=== PATIENT | female | born 1985 | race Caucasian/White ===

== ENCOUNTER 2016-12-09 22:54 | Emergency (ER) | payer MEDICAID ==
[2016-12-10] MEDS ORDERED: CEPHALEXIN 250 MG CAPSULE PO STA (01:05)
[2016-12-10] MEDS ORDERED: CEPHALEXIN 250 MG CAPSULE PO ONE (01:15)
== END 2016-12-10 01:15 | disposition home or self-care (01) ==
DX: J02.9 Acute pharyngitis, unspecified (principal); F17.200 Nicotine dependence, unspecified, uncomplicated
CPT/HCPCS: 81025; 99283; A9270

== ENCOUNTER 2017-03-12 22:47 | Emergency (ER) | payer MEDICAID ==
[2017-03-13] MEDS ORDERED: ONDANSETRON ODT 4 MG TABLET TL STA (00:02)
== END 2017-03-13 01:01 | disposition left against medical advice (07) ==
DX: R10.2 Pelvic and perineal pain (principal); O99.331 Smoking (tobacco) complicating pregnancy, first trimester; Z3A.12 12 weeks gestation of pregnancy; Z53.29 Procedure and treatment not carried out because of patient's decision for other reasons

== ENCOUNTER 2017-04-18 13:02 | Emergency (ER) | payer MEDICAID ==
--- NOTE | 2017-04-18 13:58 | ED Physician Documentation ---
History of Present Illness - Stated complaint Stated Complaint: HEADACHE/VOMITING - Chief complaint Chief Complaint: Heent - History obtained from History obtained from: Patient, Family - History of Present Illness Timing: How many days ago (3) Pain level max: 10 Pain level now: 10 Improved by: fioricet helped yesterday Worsened by: light, sound - Additonal information Additional information: 31 yo F with 3 day history of headache. Gradual onset. States burning to the top of her head. States uses IV heroin daily. States improved with fioricet. No fevers. No vomiting. States she is supposed to follow up about her , but has not followed up yet. Review of Systems Constitutional: denies: Fever, Chills Eyes: reports: Photophobia. denies: Decreased vision Ears: denies: Ear pain Nose: denies: Rhinorrhea / runny nose, Congestion Throat: denies: Sore throat Respiratory: denies: Cough GI: denies: Nausea, Vomiting, Diarrhea : reports: Now EGA (unsure) Skin: denies: Rash Musculoskeletal: denies: Neck pain, Back pain PD PAST MEDICAL HISTORY - Past Medical History Past Medical History: No Cardiovascular: None Endocrine/Autoimmune: None Musculoskeletal: Chronic back pain - Past Surgical History Past Surgical History: No - Present Medications Home Medications: Ambulatory Orders Medication Instructions Recorded Confirmed Aripiprazole [Abilify] 5 mg PO DAILY 11/05/16 03/12/17 Sertraline [Zoloft] 50 mg PO DAILY 11/05/16 03/12/17 - Allergies Allergies/Adverse Reactions: Allergies Allergy/AdvReac Type Severity Reaction Status Date / Time No Known Drug Allergies Allergy Verified 11/15/16 14:42 - Social History Does the pt smoke?: Yes Smoking Status: Current every day smoker Does the pt drink ETOH?: No Does the pt have substance abuse?: Yes - Immunizations Immunizations are current?: No Immunizations: Other immun not current - POLST Patient has POLST: No PD ED PE NORMAL - Vitals Vital signs reviewed: Yes - General General: Alert and oriented X 3, No acute distress, Well developed/nourished - HEENT HEENT: Atraumatic, PERRL, Moist mucous membranes, Other (+ photophobia) - Neck Neck: Supple, no meningeal sign, No bony TTP, No adenopathy - Cardiac Cardiac: RRR, No murmur - Respiratory Respiratory: No respiratory distress, Clear bilaterally - Abdomen Abdomen: Soft, Non tender, Non distended - Back Back: No spinal TTP - Derm Derm: Warm and dry - Extremities Extremities: No edema - Neuro Neuro: Alert and oriented X 3, parts processor 2-12 intact, No motor deficit, No sensory deficit, Normal speech - Psych Psych: Normal mood, Normal affect Results - Vitals Vitals: Vital Signs - 24 hr 04/18/17 04/18/17 13:04 14:25 Temperature 36.9 C Heart Rate 115 H 103 H Respiratory 28 H 16 Rate Blood Pressure 115/73 118/56 L O2 Saturation 97 97 Oxygen O2 Source Room air - Labs Labs: Laboratory Tests 04/18/17 04/18/17 14:00 14:06 Urine Color YELLOW Urine Clarity CLEAR Urine pH 5.5 Ur Specific [place] 1.015 Urine Protein TRACE Urine Glucose (UA) NEGATIVE Urine Ketones NEGATIVE Urine Occult Blood NEGATIVE Urine Nitrite NEGATIVE Urine Bilirubin NEGATIVE Urine Urobilinogen 0.2 (NORMAL) Ur Leukocyte Esterase NEGATIVE Ur Microscopic Review NOT INDICATED Urine Culture Comments NOT INDICATED Urine HCG, Qual NEGATIVE Urine Opiates Screen POSITIVE H Ur Oxycodone Screen NEGATIVE Urine Methadone Screen NEGATIVE Ur Propoxyphene Screen NEGATIVE Ur Barbiturates Screen POSITIVE H Ur Tricyclics Screen NEGATIVE Ur Phencyclidine Scrn NEGATIVE Ur Amphetamine Screen POSITIVE H U Methamphetamines Scrn POSITIVE H U Benzodiazepines Scrn NEGATIVE Urine Cocaine Screen NEGATIVE U Cannabinoids Screen NEGATIVE PD MEDICAL DECISION MAKING - ED course Complexity details: re-evaluated patient, considered differential, d/w patient, d/w family ED course: Patient is a 31-year-old female who has a history of polysubstance abuse, presents to the emergency department with a headache today. Unclear etiology. Headache resolved with Toradol, Phenergan, Benadryl. She is very well-appearing , nontoxic. Afebrile. No evidence of encephalitis. Photophobia resolved. Ambulating with a steady gait emergency department. test is negative. She has no evidence of meningitis, subarachnoid hemorrhage. Normal neurological exam. We will have her follow-up with her doctor for further evaluation and care. Patient counseled regarding signs and symptoms for which I believe and urgent re-evaluation would be necessary. Patient with good understanding of and agreement to plan and is comfortable going home at this time This document was made in part using voice recognition software. While efforts are made to proofread this document, sound alike and grammatical errors may occur. Departure - Departure Disposition: 01 Home, Self Care Clinical Impression: Methamphetamine abuse, Heroin abuse Headache Qualifiers: Headache type: unspecified Headache chronicity pattern: acute headache Intractability: not intractable Qualified Code(s): R51 - Headache Condition: Good Instructions: ED Headache Migraine Follow-Up: Mindy Scott ARNP [Primary Care Provider] - Within 1 week Comments: Return if you worsen. This should continue to improve over the next few hours. Discharge Date/Time: 04/18/17 15:05
[2017-04-18] MEDS ORDERED: KETOROLAC 30 MG/ML VIAL IM STA (14:15)
[2017-04-18] MEDS ORDERED: diphenhydrAMINE INJ 50 MG/ML VIAL IM STA (14:15)
[2017-04-18] MEDS ORDERED: PROMETHAZINE 25 MG/1 ML VIAL IM STA (14:15)
[2017-04-18 14:19] LABS: BILIRUBIN,URINE NEGATIVE (NEGATIVE); PH,URINE 5.5 PH (5.0-7.5)
[2017-04-18] MEDS ORDERED: PROMETHAZINE 25 MG/1 ML VIAL ONE (14:22)
[2017-04-18 14:23] LABS: HCG UR QUAL NEGATIVE; UA CHARGE (STRIP ONLY) YES; UR CULTURE IF IND NOT INDICATED
[2017-04-18] MEDS ORDERED: KETOROLAC 30 MG/ML VIAL ONE (14:23)
[2017-04-18] MEDS ORDERED: diphenhydrAMINE INJ 50 MG/ML VIAL ONE (14:23)
[2017-04-18 14:26] VITALS: BP 118/56
== END 2017-04-18 15:05 | disposition home or self-care (01) ==
LOC: ED 13:02
DX: R51 Headache (principal); F17.200 Nicotine dependence, unspecified, uncomplicated
CPT/HCPCS: 80306; 81001; 81003; 81025; 87086; 96372; 99283; 99284

== ENCOUNTER 2017-05-05 14:16 | Outpatient (CLI) | payer MEDICAID | END 2017-05-05 14:17 | disposition critical access hospital (66) | LOC: EMS 14:16 | PROVIDERS: ATTEND Surgery | DX: R10.9 Unspecified abdominal pain (principal) | CPT/HCPCS: A0425; A0429 ==

== ENCOUNTER 2017-05-05 14:34 | Emergency (ER) | payer MEDICAID ==
[2017-05-05 14:42] VITALS: BP 117/78
--- NOTE | 2017-05-05 15:17 | ED Physician Documentation ---
PD HPI ABD PAIN - Stated complaint Stated Complaint: ABD PX 15 WK PREG - Chief complaint Chief Complaint: Abd Pain PD PAST MEDICAL HISTORY - Past Medical History Cardiovascular: None Endocrine/Autoimmune: None Musculoskeletal: Chronic back pain - Past Surgical History Past Surgical History: No - Allergies Allergies/Adverse Reactions: Allergies Allergy/AdvReac Type Severity Reaction Status Date / Time No Known Drug Allergies Allergy Verified 05/05/17 14:41 - Social History Does the pt smoke?: Yes Smoking Status: Current every day smoker Does the pt drink ETOH?: No Does the pt have substance abuse?: Yes - Immunizations Immunizations are current?: No Immunizations: Other immun not current - POLST Patient has POLST: No Results - Vitals Vitals: Vital Signs - 24 hr 05/05/17 14:35 Temperature 37 C Heart Rate 95 Respiratory 16 Rate Blood Pressure 117/78 O2 Saturation 96 Oxygen O2 Source Room air
== END 2017-05-05 15:22 | disposition left against medical advice (07) ==
LOC: EDUNIT# → ED 14:34
DX: M54.9 Dorsalgia, unspecified (principal); Z53.21 Procedure and treatment not carried out due to patient leaving prior to being seen by health care provider; O99.332 Smoking (tobacco) complicating pregnancy, second trimester; Z3A.15 15 weeks gestation of pregnancy
CPT/HCPCS: 99281

== ENCOUNTER 2017-05-21 12:39 | Outpatient (CLI) | payer MEDICAID | END 2017-05-21 12:40 | disposition critical access hospital (66) | LOC: EMS 12:39 | PROVIDERS: ATTEND Surgery | DX: R10.9 Unspecified abdominal pain (principal) | CPT/HCPCS: A0425; A0429 ==

== ENCOUNTER 2017-05-21 13:07 | Emergency (ER) | payer MEDICAID ==
[2017-05-21 13:13] VITALS: BP 109/71
== END 2017-05-21 13:36 | disposition left against medical advice (07) ==
LOC: ED 13:07
DX: Z53.21 Procedure and treatment not carried out due to patient leaving prior to being seen by health care provider (principal)

== ENCOUNTER 2017-07-08 20:53 | Emergency (ER) | payer MEDICAID, OTHER ==
[2017-07-08 20:58] VITALS: BP 118/91
[2017-07-08] MEDS ORDERED: ACETAMINOPHEN 325 MG TABLET PO STA (21:24)
[2017-07-08] MEDS ORDERED: SULFAMETH/TRIMETH DS 800/160 MG TABLET PO STA (21:34)
[2017-07-08] MEDS ORDERED: ceFAZolin 1 GM VIAL IM STA (21:34)
[2017-07-08] MEDS ORDERED: ACETAMINOPHEN 325 MG TABLET PO ONE (21:36)
[2017-07-08] MEDS ORDERED: SULFAMETH/TRIMETH DS 800/160 MG TABLET PO ONE (21:43)
[2017-07-08] MEDS ORDERED: cefTRIAXone 1 GM VIAL ONE (21:43)
[2017-07-08] MEDS ORDERED: WATER FOR INJECTION,STERILE 10 ML ONE ×2 (21:44→22:22)
--- NOTE | 2017-07-08 22:12 | ED Physician Documentation ---
History of Present Illness - Stated complaint Stated Complaint: [facility] - Chief complaint Chief Complaint: Wound - Additonal information Additional information: Patient is a 31-year-old female with a history of injection heroin abuse and a history of cutaneous abscesses. The patient was picked up on a warrant tonight and during her last incarceration she was found to have abscesses so she is instructed by the retirement nurse to come into the emergency department to make sure that nothing required IV antibiotics were significant incision and drainage. The patient has multiple complaints now that she is here in police custody. She said she tried to address his complaints weeks ago when she came into the emergency department but she was not seen at that time because she left. She says she has an area in her right anterior medial thigh that she thinks is infected. She also complains of multiple cutaneous abscesses on her arms and in her mouth. Review of systems: For pertinent positive and negatives in the review of systems please see the history of present illness, otherwise all other systems have been reviewed and are negative. Dragon disclaimer: Parts of this medical record were created using voice recognition technology. Because of the inherent limitations of this system, occasional same sounding word substitutions do occur and persist despite proofreading. Please read the document for context. Review of Systems Constitutional: denies: Fever, Chills PD PAST MEDICAL HISTORY - Past Medical History Cardiovascular: None Endocrine/Autoimmune: None Musculoskeletal: Chronic back pain - Past Surgical History Past Surgical History: No - Present Medications Home Medications: Ambulatory Orders Medication Instructions Recorded Confirmed No Known Home Medications [No 05/21/17 05/21/17 Known Home Medications] - Allergies Allergies/Adverse Reactions: Allergies Allergy/AdvReac Type Severity Reaction Status Date / Time No Known Drug Allergies Allergy Verified 05/21/17 13:13 - Social History Does the pt smoke?: Yes Smoking Status: Current every day smoker Does the pt drink ETOH?: No Does the pt have substance abuse?: Yes - Immunizations Immunizations are current?: No Immunizations: Other immun not current - POLST Patient has POLST: No PD ED PE NORMAL - Vitals Vital signs reviewed: Yes - General General: Alert and oriented X 3, No acute distress, Well developed/nourished, Other - HEENT HEENT: Atraumatic, PERRL, Pharynx benign, Other (Dentition no obvious soft tissue swelling or abscesses seen) - Neck Neck: Supple, no meningeal sign, No bony TTP - Cardiac Cardiac: RRR, No murmur, No gallop - Respiratory Respiratory: No respiratory distress, Clear bilaterally - Abdomen Abdomen: Normal bowel sounds, Soft, Non tender, Non distended - Derm Derm: Normal color, Warm and dry, No rash - Extremities Extremities: No deformity, No tenderness to palpate, Normal ROM s pain, No edema , No calf tenderness / cord, Other - Neuro Neuro: Alert and oriented X 3 Results - Vitals Vitals: Vital Signs - 24 hr 07/08/17 20:55 Temperature 37.4 C Heart Rate 103 H Respiratory 18 Rate Blood Pressure 118/91 H O2 Saturation 100 Oxygen O2 Source Room air PD MEDICAL DECISION MAKING - ED course ED course: Patient is a 31-year-old heroin addict that was brought in [facility] for incarceration. She did have a history of cutaneous abscesses that needed medical attention during her last incarceration so they were directed to come to the emergency department for medical clearance. Here she has multiple complaints. On physical examination she is a well-appearing female does not look toxic or ill. She has a normal neurologic cardiac and pulmonary exam. In regards to the cutaneous abscesses there are a few hard nodules on her arms and none of which look infected. We tried to get access to the alleged problematic area in the right thigh are perineal area and the patient refused to have us look at these areas. We next attempted to have the nurse undressed the patient and look into it is problematic areas and again patient refused to have this look at them. I talked with the retirement nurse. At this point since she is refusing moreno parts of the physical examination otherwise looks fine we will release her to gel. Custody of the police. If she has anything that is encountered later once a thorough physical examination these areas can be performed that she might need to be sent back. We attempted to also give her antibiotics just empirically in case she has an infection since she is high risk for these and patient refused to take any antibiotics here. She was getting given Ancef and Bactrim. I called the retirement nurse and notified her of the new changes. Disposition discharged back to retirement Clinical impression: Medical screening examination Departure - Departure Disposition: 01 Home, Self Care Clinical Impression: Encounter for medical screening examination Condition: Good Instructions: ED Narcotic Abuse
[2017-07-08] MEDS ORDERED: ceFAZolin 1 GM VIAL ONE (22:22)
== END 2017-07-08 22:30 | disposition home or self-care (01) ==
LOC: ED 20:53
DX: Z02.89 Encounter for other administrative examinations (principal); Z87.898 Personal history of other specified conditions; F17.200 Nicotine dependence, unspecified, uncomplicated
CPT/HCPCS: 96372; 99283; A9270

== ENCOUNTER 2017-07-12 10:16 | Emergency (ER) | payer MEDICAID, OTHER ==
[2017-07-12] MEDS ORDERED: SODIUM CHLORIDE 0.9% 1,000 ML IV ONE (10:24)
[2017-07-12] MEDS ORDERED: SODIUM CHLORIDE FLUSH 0.9% 10 ML SYRINGE IVP ONE (10:52)
[2017-07-12] MEDS ORDERED: ONDANSETRON ODT 4 MG TABLET TL STA (11:21)
[2017-07-12] MEDS ORDERED: ONDANSETRON ODT 4 MG TABLET ONE (11:33)
[2017-07-12 12:23] LABS: BILIRUBIN,URINE NEGATIVE (NEGATIVE); UA w/ MICROSCOPIC CHARGE YES
[2017-07-12 12:24] LABS: UR CULTURE IF IND NOT INDICATED; WBC,URINE 0-3 /HPF (0-5)
--- NOTE | 2017-07-12 12:42 | ED Physician Documentation ---
PD HPI NVD - Stated complaint Stated Complaint: VOMITING,DIARRHEA - Chief complaint Chief Complaint: Abd Pain - History obtained from History obtained from: Patient, Police - History of Present Illness Pain level max: 4 Pain level now: 3 Associated symptoms: Abdominal pain (Epigastric, with vomiting). No: Fever, Chest pain, Hematemesis, Melena, Hematochezia, Dizzy Contributing factors: No: Bad food, Recent antibiotics, Anticoagulated, Diabetes Improved by: Vomiting Worsened by: Eating - Additonal information Additional information: Patient is a 31-year-old female who presents to the emergency department after vomiting for the past several days while in intermediate. She was using multiple substances prior to her incarceration. She states that she has epigastric pain when she vomits. Denies any other abdominal pain at this time. Denies any fevers. Also reportedly had diarrhea while incarcerated. She is here with police. She has a long history of IV drug use. Review of Systems Ten Systems: 10 systems reviewed and negative Constitutional: denies: Fever Nose: denies: Rhinorrhea / runny nose, Congestion Throat: denies: Sore throat : denies: Now EGA Skin: denies: Rash Musculoskeletal: denies: Neck pain, Back pain Neurologic: denies: Headache PD PAST MEDICAL HISTORY - Past Medical History Past Medical History: Yes Cardiovascular: None Endocrine/Autoimmune: None Musculoskeletal: Chronic back pain Other Past Medical History: IV drug abuser - Past Surgical History Past Surgical History: No - Present Medications Home Medications: Ambulatory Orders Medication Instructions Recorded Confirmed Dicyclomine [Bentyl] 10 mg PO TID 07/12/17 07/12/17 Lorazepam 1 mg PO TID 07/12/17 07/12/17 Promethazine Supp [Phenergan Supp] 25 mg [place] ONCE 07/12/17 07/12/17 Promethazine [Phenergan] 25 mg PO ONCE 07/12/17 07/12/17 cloNIDine [Catapres] 0.1 mg PO TID 07/12/17 07/12/17 - Allergies Allergies/Adverse Reactions: Allergies Allergy/AdvReac Type Severity Reaction Status Date / Time No Known Drug Allergies Allergy Verified 05/21/17 13:13 - Social History Does the pt smoke?: Yes Smoking Status: Current every day smoker Does the pt drink ETOH?: No Does the pt have substance abuse?: Yes Substance Use and Type: Meth, Heroin - Immunizations Immunizations are current?: No Immunizations: Other immun not current - POLST Patient has POLST: No PD ED PE NORMAL - Vitals Vital signs reviewed: Yes - General General: Alert and oriented X 3, No acute distress - HEENT HEENT: PERRL, Moist mucous membranes, Pharynx benign - Neck Neck: Supple, no meningeal sign - Cardiac Cardiac: RRR, Strong equal pulses - Respiratory Respiratory: No respiratory distress, Clear bilaterally - Abdomen Abdomen: Normal bowel sounds, Soft, Non tender, Non distended - Back Back: No spinal TTP - Derm Derm: Warm and dry, No rash - Extremities Extremities: No edema, No calf tenderness / cord - Neuro Neuro: Alert and oriented X 3 - Psych Psych: Normal mood, Normal affect Results - Vitals Vitals: Vital Signs - 24 hr 07/12/17 07/12/17 10:20 12:52 Temperature 36.5 C Heart Rate 89 57 L Respiratory 16 16 Rate Blood Pressure 108/68 108/65 O2 Saturation 94 100 Oxygen O2 Source Room air - Labs Labs: Laboratory Tests 07/12/17 11:55 Urine Color RED/BLOODY Urine Clarity BLOODY Urine pH 7.0 Ur Specific [place] 1.025 Urine Protein 100 H Urine Glucose (UA) NEGATIVE Urine Ketones NEGATIVE Urine Occult Blood LARGE H Urine Nitrite NEGATIVE Urine Bilirubin NEGATIVE Urine Urobilinogen 0.2 (NORMAL) Ur Leukocyte Esterase NEGATIVE Urine RBC TNTC H Urine WBC 0-3 Ur Squamous Epith Cells FEW Squamous Urine Bacteria Few Urine Yeast PRESENT Ur Microscopic Review INDICATED Urine Culture Comments NOT INDICATED PD MEDICAL DECISION MAKING - ED course Complexity details: reviewed results, re-evaluated patient, considered differential, d/w patient, d/w PMD (Mahnaz Marcial NP) ED course: Patient is a 31-year-old female who presents to the emergency department with vomiting and diarrhea for the past several days. Is tolerating p.o. without difficulty in the emergency department. Abdomen was soft, nontender nondistended. We attempted several times to obtain IV access, but she is a difficult stick secondary to her long history of IV drug abuse. She declined a blood draw as well. She states she feels better and would like to return to the intermediate at this time. She is well-appearing, nontoxic. Well-hydrated. As she is tolerating p.o. well, will continue supportive care at the intermediate. Patient counseled regarding signs and symptoms for which I believe and urgent re -evaluation would be necessary. Patient with good understanding of and agreement to plan and is comfortable going home at this time This document was made in part using voice recognition software. While efforts are made to proofread this document, sound alike and grammatical errors may occur. Departure - Departure Disposition: 01 Home, Self Care Clinical Impression: Vomiting Qualifiers: Vomiting type: unspecified Vomiting Intractability: non-intractable Nausea presence: without nausea Qualified Code(s): R11.11 - Vomiting without nausea Condition: Good Instructions: ED Nausea Vomiting Follow-Up: your,doctor in 3 days [Other] Comments: Return if you worsen. continue to drink fluids in the intermediate. Discharge Date/Time: 07/12/17 12:59
[2017-07-12 12:54] VITALS: BP 108/65
== END 2017-07-12 12:59 | disposition home or self-care (01) ==
LOC: ED 10:16
DX: R11.11 Vomiting without nausea (principal); F17.200 Nicotine dependence, unspecified, uncomplicated
CPT/HCPCS: 81001; 99283; Q0162; 80053; 81003; 83690; 85025; 87086

== ENCOUNTER 2017-07-18 23:18 | Outpatient (CLI) | payer SELFPAY | END 2017-07-18 23:19 | disposition critical access hospital (66) | LOC: EMS 23:18 | PROVIDERS: ATTEND Surgery | DX: R25.9 Unspecified abnormal involuntary movements (principal) | CPT/HCPCS: A0425; A0429 ==

== ENCOUNTER 2017-07-18 23:22 | Emergency (ER) | payer OTHER ==
--- NOTE | 2017-07-19 01:42 | ED Physician Documentation ---
History of Present Illness - Stated complaint Stated Complaint: WD/SZ - Chief complaint Chief Complaint: Neuro - History obtained from History obtained from: Patient, Police - History of Present Illness Timing: Today Pain level now: 0 - Additonal information Additional information: from [facility] where she is incarcerated. Patient says she was taking a shower tonight, did not feel anything unusual at the time, then woke up on floor "with people around me". She says she had a seizure, although she describes what sounds like LOC. Police who was on duty at the time says she did not witness the patient fall to floor but did find patient on ground, appeared to have stiffness of body/limbs. Medics found patient to exhibit decreased responsiveness to verbal but responded to pain Review of Systems Constitutional: reports: Reviewed and negative Eyes: reports: Reviewed and negative Cardiac: reports: Reviewed and negative Respiratory: reports: Reviewed and negative GI: reports: Reviewed and negative Musculoskeletal: reports: Reviewed and negative Neurologic: reports: LOC. denies: Generalized weakness, Focal weakness, Numbness, Altered mental status, Headache, Head injury PD PAST MEDICAL HISTORY - Past Medical History Cardiovascular: None Endocrine/Autoimmune: None Musculoskeletal: Chronic back pain - Past Surgical History Past Surgical History: No - Present Medications Home Medications: Ambulatory Orders Medication Instructions Recorded Confirmed Dicyclomine [Bentyl] 10 mg PO TID 07/12/17 07/12/17 Lorazepam 1 mg PO TID 07/12/17 07/12/17 Promethazine Supp [Phenergan Supp] 25 mg [place] ONCE 07/12/17 07/12/17 Promethazine [Phenergan] 25 mg PO ONCE 07/12/17 07/12/17 cloNIDine [Catapres] 0.1 mg PO TID 07/12/17 07/12/17 Levetiracetam [Keppra] 500 mg PO BID #60 tablet 07/19/17 - Allergies Allergies/Adverse Reactions: Allergies Allergy/AdvReac Type Severity Reaction Status Date / Time No Known Drug Allergies Allergy Verified 05/21/17 13:13 - Social History Does the pt smoke?: Yes Smoking Status: Current every day smoker Does the pt drink ETOH?: No Does the pt have substance abuse?: Yes - Immunizations Immunizations are current?: No Immunizations: Other immun not current - POLST Patient has POLST: No PD ED PE NORMAL - Vitals Vital signs reviewed: Yes - General General: Alert and oriented X 3, No acute distress, Well developed/nourished - HEENT HEENT: Atraumatic, PERRL, EOMI, Moist mucous membranes, Other (no tongue bite/ echymosis) - Neck Neck: Supple, no meningeal sign, No bony TTP - Cardiac Cardiac: RRR, No murmur - Respiratory Respiratory: No respiratory distress, Clear bilaterally - Abdomen Abdomen: Soft, Non tender - Back Back: No spinal TTP - Derm Derm: Normal color, Warm and dry - Extremities Extremities: Normal ROM s pain - Neuro Neuro: Alert and oriented X 3, duplication specialist 2-12 intact, No motor deficit, No sensory deficit, Normal speech - Psych Psych: Normal mood, Normal affect Results - Vitals Vitals: Oxygen O2 Source Room air PD MEDICAL DECISION MAKING - ED course Complexity details: reviewed old records, considered differential, d/w patient ED course: Patient arrived hypokinetic, responding quietly to verbal, follows commands. During ED observation, she became increasingly awake and alert and prior to d/c is AAOx3, smiling, conversant, asymptomatic. She says she has had a few similar episodes over past few weeks. She is incarcerated and recently had medications stopped which she had been put on to help prevent withdrawal symptoms. She denies recent heavy alcohol use. I discussed with her options for treatment for possible seizures, particularly Keppra. She did not have an opinion either way, and I recommended Keppra, as the description of the episodes sounds suspicious enough for seizures to me. I emphasized to her that she should see PMD to get a neurology referral for EEG, to return to ED if worse in any way. She expresses understanding of, and comfort with, this plan. Departure - Departure Disposition: 01 Home, Self Care Clinical Impression: Grand mal seizure Condition: Good Instructions: ED Seizure New Onset Unk Cause Follow-Up: [facility] [Provider Group] [facility] [Provider Group] Prescriptions: Levetiracetam [Keppra] 500 mg PO BID #60 tablet Discharge Date/Time: 07/19/17 02:31
[2017-07-19] MEDS ORDERED: levETIRAcetam 250 MG TABLET PO STA (01:59)
[2017-07-19] MEDS ORDERED: levETIRAcetam 250 MG TABLET ONE (02:24)
[2017-07-19 02:29] VITALS: BP 108/61
== END 2017-07-19 02:31 | disposition home or self-care (01) ==
LOC: EDUNIT# → ED 23:22
DX: G40.409 Other generalized epilepsy and epileptic syndromes, not intractable, without status epilepticus (principal); F17.200 Nicotine dependence, unspecified, uncomplicated
CPT/HCPCS: 99283; 99284; A9270

== ENCOUNTER 2017-08-03 13:10 | Emergency (ER) | payer MEDICAID ==
[2017-08-03 13:15] VITALS: BP 125/70
[2017-08-03] MEDS ORDERED: AMOXICILLIN 250 MG CAPSULE PO STA (14:12)
[2017-08-03] MEDS ORDERED: HYDROcod/ACETAM 5/325 MG TABLET PO STA (14:13)
[2017-08-03] MEDS ORDERED: ONDANSETRON ODT 4 MG TABLET TL STA (14:13)
--- NOTE | 2017-08-03 14:15 | ED Physician Documentation ---
PD HPI HEENT - Stated complaint Stated Complaint: VOMITING/TOOTH PX - Chief complaint Chief Complaint: Heent - History obtained from History obtained from: Patient, Family - History of Present Illness Timing - onset: How many days ago (5) Timing - duration: Days (5) Timing - details: Gradual onset, Still present Location: Tooth Improves: Medication Worsens: Everything Associated symptoms: Congestion, Facial swelling, Headache. No: Fever Similar symptoms before: Has not had sx before Recently seen: Not recently seen - Additional information Additional information: 31 y/o female with a sore tooth for the past 5 days has developed vomiting as well. She has swelling to the face and feels poorly. Review of Systems Constitutional: reports: Myalgias, Fatigue. denies: Fever, Chills Eyes: denies: Decreased vision Ears: denies: Ear pain Nose: denies: Rhinorrhea / runny nose, Congestion Throat: reports: Dental pain / toothache. denies: Sore throat Respiratory: denies: Cough GI: reports: Nausea, Vomiting : denies: Dysuria, Frequency PD PAST MEDICAL HISTORY - Past Medical History Cardiovascular: None Endocrine/Autoimmune: None Musculoskeletal: Chronic back pain - Past Surgical History Past Surgical History: No - Present Medications Home Medications: Ambulatory Orders Medication Instructions Recorded Confirmed Amoxicillin 875 mg PO BID #20 tablet 08/03/17 Ondansetron Odt [Zofran] 4 mg TL Q6H PRN #10 tablet 08/03/17 - Allergies Allergies/Adverse Reactions: Allergies Allergy/AdvReac Type Severity Reaction Status Date / Time No Known Drug Allergies Allergy Verified 05/21/17 13:13 - Social History Does the pt smoke?: Yes Smoking Status: Current every day smoker Does the pt drink ETOH?: No Does the pt have substance abuse?: No - Immunizations Immunizations are current?: No Immunizations: Other immun not current - POLST Patient has POLST: No PD ED PE NORMAL - Vitals Vital signs reviewed: Yes - General General: Well developed/nourished, Other (The patient appears to be in pain with decreased labionasal fold tone and increased corregator tone. ) - HEENT HEENT: Atraumatic, PERRL, EOMI, Other (multiple carious teeth with #27 broken at the base with surrounding swelling and tenderness. ) - Neck Neck: Supple, no meningeal sign, No bony TTP - Cardiac Cardiac: RRR, No murmur - Respiratory Respiratory: No respiratory distress, Clear bilaterally - Abdomen Abdomen: Soft, Non tender - Derm Derm: Normal color, Warm and dry, No rash - Extremities Extremities: No deformity, No edema - Neuro Neuro: No motor deficit, No sensory deficit - Psych Psych: Normal mood, Normal affect PD ED PE EXPANDED - HEENT HEENT Visual: 1 - abscess, swelling, deformity, tenderness Results - Vitals Vitals: Vital Signs - 24 hr 08/03/17 13:13 Temperature 36.4 C L Heart Rate 89 Respiratory 18 Rate Blood Pressure 125/70 O2 Saturation 100 Oxygen O2 Source Room air Procedures - IVC sono (time) 1414 Bedside IVC sono: IVC measures (cm) (1.40), Euvolemia (near) PD MEDICAL DECISION MAKING - ED course Complexity details: reviewed results, re-evaluated patient, considered differential, d/w patient, d/w family ED course: 31-year-old female with a carious abscessed tooth and vomiting does not appear to require IV hydration. She is administered oral amoxicillin and Vicodin as well as Zofran here in the emergency department. She is uncertain as to whether she will be able to fill her scripts. Departure - Departure Disposition: 01 Home, Self Care Clinical Impression: Dental abscess Condition: Stable Instructions: ED Abscess Dental Follow-Up: [facility] [place] [Provider Group] Prescriptions: Amoxicillin 875 mg PO BID #20 tablet Ondansetron Odt [Zofran] 4 mg TL Q6H PRN #10 tablet PRN Reason: Nausea / Vomiting
[2017-08-03] MEDS ORDERED: AMOXICILLIN 250 MG CAPSULE PO ONE (14:27)
[2017-08-03] MEDS ORDERED: ONDANSETRON ODT 4 MG TABLET ONE (14:27)
[2017-08-03] MEDS ORDERED: HYDROcod/ACETAM 5/325 MG TABLET ONE (14:27)
== END 2017-08-03 14:32 | disposition home or self-care (01) ==
LOC: ED 13:10
DX: K04.7 Periapical abscess without sinus (principal); F17.200 Nicotine dependence, unspecified, uncomplicated
CPT/HCPCS: 99282; 99283; A9270; Q0162

== ENCOUNTER 2017-08-12 13:14 | Emergency (ER) | payer MEDICAID ==
[2017-08-12 13:23] VITALS: BP 111/74
[2017-08-12] MEDS ORDERED: LIDOCAINE 2%-EPI 1:100000 20 ML MDV SUBQ STA (15:11)
[2017-08-12] MEDS ORDERED: LIDOCAINE 2%-EPI 1:100000 20 ML MDV ONE (15:16)
--- NOTE | 2017-08-12 15:28 | ED Physician Documentation ---
PD HPI SKIN - Stated complaint Stated Complaint: ABSCESS - Chief complaint Chief Complaint: Wound - History obtained from History obtained from: Patient, Family - History of Present Illness Timing - onset: How many days ago (several) Timing - duration: Days (several) Timing - details: Gradual onset Pain level max: 6 Pain level now: 6 Location: Other (R forearm) Quality / character: Painful, Raised, Swelling. No: Draining Improved by: Other (nothing) Worsened by (comment): COMMENT (nothing) Associated symptoms: No: Fever, Myalgias, Joint pain, Headache, Facial swelling , Dyspnea, Abd pain, N/V/D, Urinary sx Similar symptoms before: Diagnosis (abscess) - Additional information Additional information: Patient is a 31-year-old female who presents to the emergency department with right forearm abscesses. She has been using heroin in the spot and using dirty needles. Denies any fever. Review of Systems Constitutional: denies: Fever, Chills GI: denies: Vomiting : denies: Now EGA Neurologic: denies: Confused, Altered mental status PD PAST MEDICAL HISTORY - Past Medical History Past Medical History: No Cardiovascular: None Endocrine/Autoimmune: None Musculoskeletal: Chronic back pain - Past Surgical History Past Surgical History: No - Present Medications Home Medications: Ambulatory Orders Medication Instructions Recorded Confirmed Amoxicillin 875 mg PO BID #20 tablet 08/03/17 Ondansetron Odt [Zofran] 4 mg TL Q6H PRN #10 tablet 08/03/17 - Allergies Allergies/Adverse Reactions: Allergies Allergy/AdvReac Type Severity Reaction Status Date / Time No Known Drug Allergies Allergy Verified 05/21/17 13:13 - Social History Does the pt smoke?: Yes Smoking Status: Current every day smoker Does the pt drink ETOH?: No Does the pt have substance abuse?: Yes Substance Use and Type: Meth, Heroin - Immunizations Immunizations are current?: No Immunizations: TDAP >10years/unknown - POLST Patient has POLST: No PD ED PE NORMAL - Vitals Vital signs reviewed: Yes - General General: Alert and oriented X 3, No acute distress - HEENT HEENT: Moist mucous membranes - Neck Neck: Supple, no meningeal sign - Cardiac Cardiac: RRR, No murmur - Respiratory Respiratory: No respiratory distress, Clear bilaterally - Derm Derm: Warm and dry - Extremities Extremities: Other (R distal forearm radial aspect - 2 abscesses. 2x2cm each, fluctuant. erythematous. NVI) - Neuro Neuro: Alert and oriented X 3 - Psych Psych: Normal mood, Normal affect Results - Vitals Vitals: Oxygen O2 Source Room air PD MEDICAL DECISION MAKING - ED course Complexity details: considered differential, d/w patient, d/w family ED course: Patient is a 31-year-old female who has been using heroin, injecting into the right wrist. Now has 2 subcutaneous abscesses. She refuses a tetanus shot. She also refuses to have the abscesses treated and drained. She refused antibiotics and walked out of the emergency department. Both myself and her friend tried to convince her to stay and have treatment, patient continued to refuse and left the ED AMA. Refused to sign paperwork. She is alert, oriented, not intoxicated. Speaks clearly. No criteria for invol hold. This document was made in part using voice recognition software. While efforts are made to proofread this document, sound alike and grammatical errors may occur. Departure - Departure Disposition: 07 Against Medical Advice Clinical Impression: Abscess Condition: Stable Discharge Date/Time: 08/12/17 15:30
== END 2017-08-12 15:30 | disposition left against medical advice (07) ==
LOC: ED 13:14
DX: L02.413 Cutaneous abscess of right upper limb (principal); F11.90 Opioid use, unspecified, uncomplicated; F17.200 Nicotine dependence, unspecified, uncomplicated
CPT/HCPCS: 99282

== ENCOUNTER 2017-10-12 12:54 | Outpatient (CLI) | payer MEDICAID | END 2017-10-12 12:55 | disposition critical access hospital (66) | LOC: EMS 12:54 | PROVIDERS: ATTEND Surgery | DX: R10.9 Unspecified abdominal pain (principal) | CPT/HCPCS: A0425; A0429 ==

== ENCOUNTER 2017-10-12 13:28 | Emergency (ER) | payer MEDICAID ==
[2017-10-12] MEDS ORDERED: SODIUM CHLORIDE 0.9% 1,000 ML IV ONE (13:58)
[2017-10-12] MEDS ORDERED: LORazepam 2 MG/ML SYRINGE IVP STA (13:58)
[2017-10-12] MEDS ORDERED: ONDANSETRON 4 MG/2 ML VIAL IVP STA ×2 (13:58→16:00)
--- NOTE | 2017-10-12 14:00 | ED Physician Documentation ---
History of Present Illness - Stated complaint Stated Complaint: N/V/D - Chief complaint Chief Complaint: Abd Pain - History obtained from History obtained from: Patient - History of Present Illness Timing: Other (31-year-old woman who presents by ambulance for vomiting and diarrhea as well as abdominal cramps of 2 days duration. It was reported to me by the nurse that she last used heroin 3 days ago, this is in contrast to what the patient tells me, she says she last used heroin yesterday in an attempt that she might feel better, because it did not help she does not think this is related to heroin withdrawal rather, she thinks she might have food poisoning. There is no fever. No sick contacts. No recent travel.) Review of Systems Constitutional: reports: Myalgias. denies: Fever, Chills Nose: reports: Rhinorrhea / runny nose. denies: Congestion Respiratory: denies: Dyspnea, Cough GI: reports: Abdominal Pain, Nausea, Vomiting, Diarrhea. denies: Hematemesis, Bloody / black stool PD PAST MEDICAL HISTORY - Past Medical History Cardiovascular: None Endocrine/Autoimmune: None Musculoskeletal: Chronic back pain - Past Surgical History Past Surgical History: No - Present Medications Home Medications: Ambulatory Orders Medication Instructions Recorded Confirmed Ondansetron HCl [Zofran] 4 mg PO Q6H PRN #10 tablet 10/12/17 - Allergies Allergies/Adverse Reactions: Allergies Allergy/AdvReac Type Severity Reaction Status Date / Time No Known Drug Allergies Allergy Verified 10/12/17 13:43 - Social History Does the pt smoke?: Yes Smoking Status: Current every day smoker Does the pt drink ETOH?: No Does the pt have substance abuse?: Yes - Immunizations Immunizations are current?: No Immunizations: TDAP >10years/unknown - POLST Patient has POLST: No PD ED PE NORMAL - Vitals Vital signs reviewed: Yes - General General: Alert and oriented X 3, Other (She is writhing around with dilated pupils, consistent with heroin withdrawal.) - Neck Neck: Supple, no meningeal sign, No bony TTP - Cardiac Cardiac: RRR, No murmur - Respiratory Respiratory: No respiratory distress, Clear bilaterally - Abdomen Abdomen: Normal bowel sounds, Soft, Non tender - Derm Derm: No rash - Neuro Neuro: Alert and oriented X 3, Normal speech Results - Vitals Vitals: Vital Signs - 24 hr 10/12/17 10/12/17 10/12/17 13:30 14:30 15:00 Temperature 36.2 C L Heart Rate 107 H 90 90 Respiratory 18 16 16 Rate Blood Pressure 124/77 124/73 115/69 O2 Saturation 100 100 100 10/12/17 10/12/17 16:00 16:45 Temperature Heart Rate 88 80 Respiratory 20 16 Rate Blood Pressure 108/84 H 108/55 L O2 Saturation 98 Oxygen O2 Source Room air - EKG (time done) 1339 Rate: Rate (enter#) (78) Rhythm: NSR [place]: Normal Intervals: Normal [place] QRS: Normal Ischemia: Normal ST segments Computer interpretation: Agree with computer - Labs Labs: Laboratory Tests 10/12/17 10/12/17 10/12/17 14:01 14:01 14:01 WBC 9.8 RBC 4.41 Hgb 11.9 L Hct 35.8 L MCV 81.2 MCH 27.0 MCHC 33.2 RDW 15.6 H Plt Count 257 MPV 9.1 Neut # 7.9 H Lymph # 1.4 L [place] # 0.2 Eos # 0.1 Baso # 0.1 Absolute Nucleated RBC 0.00 Nucleated RBC % 0.0 Sodium 135 Potassium 3.7 Chloride 100 L Carbon Dioxide 22 Anion Gap 13.0 BUN 9 Creatinine 0.5 Estimated GFR (MDRD) 146 Glucose 115 H Calcium 9.7 Total Bilirubin 0.8 AST 36 ALT 53 Alkaline Phosphatase 53 Total Protein 8.6 H Albumin 4.2 Globulin 4.3 H Albumin/Globulin Ratio 1.0 Lipase 18 L HCG, Quant < 0.60 Urine Color Urine Clarity Urine pH Ur Specific [place] Urine Protein Urine Glucose (UA) Urine Ketones Urine Occult Blood Urine Nitrite Urine Bilirubin Urine Urobilinogen Ur Leukocyte Esterase Urine RBC Urine WBC Ur Squamous Epith Cells Urine Bacteria Urine Mucus Urine Trichomonas Ur Microscopic Review Urine Culture Comments Urine Opiates Screen Ur Oxycodone Screen Urine Methadone Screen Ur Propoxyphene Screen Ur Barbiturates Screen Ur Tricyclics Screen Ur Phencyclidine Scrn Ur Amphetamine Screen U Methamphetamines Scrn U Benzodiazepines Scrn Urine Cocaine Screen U Cannabinoids Screen 10/12/17 17:01 WBC RBC Hgb Hct MCV MCH MCHC RDW Plt Count MPV Neut # Lymph # [place] # Eos # Baso # Absolute Nucleated RBC Nucleated RBC % Sodium Potassium Chloride Carbon Dioxide Anion Gap BUN Creatinine Estimated GFR (MDRD) Glucose Calcium Total Bilirubin AST ALT Alkaline Phosphatase Total Protein Albumin Globulin Albumin/Globulin Ratio Lipase HCG, Quant Urine Color RED/BLOODY Urine Clarity BLOODY Urine pH 7.0 Ur Specific [place] 1.025 Urine Protein 100 H Urine Glucose (UA) NEGATIVE Urine Ketones >=80 H Urine Occult Blood LARGE H Urine Nitrite NEGATIVE Urine Bilirubin NEGATIVE Urine Urobilinogen 0.2 (NORMAL) Ur Leukocyte Esterase TRACE H Urine RBC TNTC H Urine WBC 6-10 H Ur Squamous Epith Cells MANY Squamous H Urine Bacteria Many H Urine Mucus Few Strands Urine Trichomonas PRESENT H Ur Microscopic Review INDICATED Urine Culture Comments NOT INDICATED Urine Opiates Screen POSITIVE H Ur Oxycodone Screen NEGATIVE Urine Methadone Screen NEGATIVE Ur Propoxyphene Screen NEGATIVE Ur Barbiturates Screen NEGATIVE Ur Tricyclics Screen NEGATIVE Ur Phencyclidine Scrn NEGATIVE Ur Amphetamine Screen POSITIVE H U Methamphetamines Scrn POSITIVE H U Benzodiazepines Scrn POSITIVE H Urine Cocaine Screen NEGATIVE U Cannabinoids Screen NEGATIVE Procedures - General procedure General procedure: She was difficult for IV access, paramedics failed in route. I personally placed a long 22-gauge IV in the left deep brachial vein using real-time ultrasound guidance after ChloraPrep which teto and flushed easily. PD MEDICAL DECISION MAKING - ED course ED course: 31-year-old woman presents with vomiting and diarrhea. She thinks from food poisoning or something similar, however the history is suggestive of heroin withdrawal. She was initially given Ativan and Zofran. She claims no relief after this and this was followed by Toradol and Compazine. On recheck at 4 PM she was quite somnolent and somewhat uncooperative. She was administered another dose of Zofran. Departure - Departure Disposition: 01 Home, Self Care Clinical Impression: Heroin abuse Vomiting Qualifiers: Vomiting type: unspecified Vomiting Intractability: non-intractable Nausea presence: with nausea Qualified Code(s): R11.2 - Nausea with vomiting, unspecified Condition: Good Record reviewed to determine appropriate education?: Yes Instructions: ED Withdrawal Narcotic, ED Nausea Vomiting Prescriptions: Ondansetron HCl [Zofran] 4 mg PO Q6H PRN #10 tablet PRN Reason: Nausea / Vomiting Comments: Call your doctor to arrange a follow-up appointment, make the next available appointment. In the interim, return anytime if worse or if new symptoms develop. Discharge Date/Time: 10/12/17 17:16
[2017-10-12] MEDS ORDERED: LORazepam 2 MG/ML SYRINGE ONE (14:08)
[2017-10-12] MEDS ORDERED: ONDANSETRON 4 MG/2 ML VIAL ONE ×2 (14:09→16:31)
[2017-10-12 14:11] LABS: BASOPHILS # (AUTO) 0.1 10^3/uL (0.0-0.1); BASOPHILS % (AUTO) 0.9 %; EOSINOPHILS # (AUTO) 0.1 10^3/uL (0.0-0.7); EOSINOPHILS % (AUTO) 0.9 %; HCT - HEMATOCRIT 35.8 % (37.0-47.0); HGB - HEMOGLOBIN 11.9 g/dL (12.0-16.0); LYMPHOCYTES # (AUTO) 1.4 10^3/uL (1.5-3.5); LYMPHOCYTES % (AUTO) 14.8 %; MEAN CORPUSCULAR HGB CONC 33.2 g/dL (32.0-36.0); MEAN CORPUSCULAR VOLUME 81.2 fL (81.0-99.0); MEAN PLATELET VOLUME 9.1 fL (7.9-10.8); MONOCYTES # (AUTO) 0.2 10^3/uL (0.0-1.0); MONOCYTES % (AUTO) 2.3 %; NEUTROPHILS # (AUTO) 7.9 10^3/uL (1.5-6.6); NEUTROPHILS % (AUTO) 81.1 %; RED BLOOD COUNT 4.41 10^6/uL (4.20-5.40); RED CELL DISTRIBUTION WIDTH 15.6 % (12.0-15.0); UNCORRECTED WHITE BLOOD COUNT 9.8 x10^3/uL; WHITE BLOOD COUNT 9.8 x10^3/uL (4.8-10.8)
[2017-10-12 14:30] LABS: BILIRUBIN,TOTAL 0.8 mg/dL (0.2-1.0); CALCIUM 9.7 mg/dL (8.5-10.3); CREATININE 0.5 mg/dL (0.4-1.0); POTASSIUM 3.7 mmol/L (3.5-5.0); TOTAL PROTEIN 8.6 g/dL (6.7-8.2)
[2017-10-12] MEDS ORDERED: KETOROLAC 60 MG/2 ML VIAL IVP STA (15:07)
[2017-10-12] MEDS ORDERED: PROCHLORPERAZINE 10 MG/2 ML VIAL IVP STA (15:07)
[2017-10-12] MEDS ORDERED: KETOROLAC 30 MG/ML VIAL ONE (15:24)
[2017-10-12] MEDS ORDERED: PROCHLORPERAZINE 10 MG/2 ML VIAL ONE (15:25)
[2017-10-12 17:20] LABS: BILIRUBIN,URINE NEGATIVE (NEGATIVE); UA w/ MICROSCOPIC CHARGE YES
[2017-10-12 17:34] VITALS: BP 108/55
[2017-10-12 17:47] LABS: UR CULTURE IF IND NOT INDICATED
[2017-10-12 17:48] LABS: TRICHOMONAS,URINE PRESENT (None Seen)
== END 2017-10-12 17:16 | disposition home or self-care (01) ==
LOC: EDUNIT# → ED 13:28
DX: F11.10 Opioid abuse, uncomplicated (principal); R11.2 Nausea with vomiting, unspecified; F17.200 Nicotine dependence, unspecified, uncomplicated
CPT/HCPCS: 36415; 80053; 80306; 81001; 83690; 84702; 85025; 93005; 96374; 96375; 96376; 99284; J2060; 81003; 87086

== ENCOUNTER 2017-11-30 21:01 | Outpatient (CLI) | payer MEDICAID | END 2017-11-30 21:02 | disposition critical access hospital (66) | LOC: EMS 21:01 | PROVIDERS: ATTEND Surgery | DX: N93.9 Abnormal uterine and vaginal bleeding, unspecified (principal) | CPT/HCPCS: A0425; A0429 ==

== ENCOUNTER 2017-11-30 21:31 | Emergency (ER) | payer MEDICAID, OTHER ==
[2017-11-30] MEDS ORDERED: SODIUM CHLORIDE 0.9% 1,000 ML IV ONE (21:41)
[2017-11-30 22:28] LABS: BASOPHILS # (AUTO) 0.1 10^3/uL (0.0-0.1); BASOPHILS % (AUTO) 0.6 %; EOSINOPHILS # (AUTO) 0.2 10^3/uL (0.0-0.7); EOSINOPHILS % (AUTO) 1.3 %; HGB - HEMOGLOBIN 11.6 g/dL (12.0-16.0); LYMPHOCYTES # (AUTO) 3.5 10^3/uL (1.5-3.5); LYMPHOCYTES % (AUTO) 27.1 %; MEAN CORPUSCULAR HGB CONC 32.9 g/dL (32.0-36.0); MEAN PLATELET VOLUME 8.7 fL (7.9-10.8); MONOCYTES # (AUTO) 0.8 10^3/uL (0.0-1.0); MONOCYTES % (AUTO) 6.4 %; NEUTROPHILS # (AUTO) 8.2 10^3/uL (1.5-6.6); NEUTROPHILS % (AUTO) 64.6 %; PLT - PLATELET COUNT 308 10^3/uL (130-450); RED BLOOD COUNT 4.31 10^6/uL (4.20-5.40); RED CELL DISTRIBUTION WIDTH 15.4 % (12.0-15.0); WHITE BLOOD COUNT 12.7 x10^3/uL (4.8-10.8)
[2017-11-30 22:39] LABS: HCG UR QUAL NEGATIVE
[2017-11-30 22:42] LABS: ALBUMIN 4.3 g/dL (3.2-5.5); ALKALINE PHOSPHATASE 55 IU/L (42-121); ALT ALANINE AMINOTRANSFERASE 37 IU/L (10-60); AST ASPARTATE AMINOTRANSFERASE 30 IU/L (10-42); BILIRUBIN,TOTAL < 0.2 mg/dL (0.2-1.0); BUN - BLOOD UREA NITROGEN 9 mg/dL (6-20); CALCIUM 9.5 mg/dL (8.5-10.3); CARBON DIOXIDE - CO2 26 mmol/L (21-32); CHLORIDE 101 mmol/L (101-111); CREATININE 0.7 mg/dL (0.4-1.0); GFR - MDRD 99 (>89); GLUCOSE 94 mg/dL (70-100); LIPASE 11 U/L (22-51); SODIUM 136 mmol/L (135-145); TOTAL PROTEIN 8.7 g/dL (6.7-8.2)
[2017-11-30 22:42] LABS: CLARITY,URINE CLEAR (CLEAR); LEUKOCYTE ESTERASE, URINE TRACE (NEGATIVE); NITRITE,URINE NEGATIVE (NEGATIVE); OCCULT BLOOD,URINE NEGATIVE (NEGATIVE); PH,URINE 6.5 PH (5.0-7.5); PROTEIN,URINE NEGATIVE (NEGATIVE); UROBILINOGEN,URINE 0.2 (NORMAL) E.U./dL (NORMAL)
[2017-11-30 22:43] LABS: BILIRUBIN,URINE NEGATIVE (NEGATIVE); GLUCOSE, URINE (UA) NEGATIVE (NEGATIVE); KETONES,URINE (UA) 15 mg/dL (NEGATIVE)
[2017-11-30 22:51] LABS: RBC,URINE 0-5 /HPF (0-5); SQUAMOUS EPITHELIAL CELL,UR MOD Squamous (<= Few)
[2017-11-30 22:52] LABS: BACTERIA,URINE Few /HPF (None Seen); MUCUS,URINE Few Strands
[2017-11-30] MEDS ORDERED: LIDOCAINE 1%-EPI 1:100000 20 ML MDV SUBQ STA (23:06)
[2017-11-30] MEDS ORDERED: CLINDAMYCIN 150 MG CAPSULE PO STA (23:06)
--- NOTE | 2017-11-30 23:36 | Ultrasound Preliminary Report ---
Exam: US OB FIRST TRIMESTER IMPRESSION: 1. No intrauterine or extrauterine gestation seen. Endometrial thickness 2 mm. 2. Small cyst on each ovary. 3. Cystic area of uncertain etiology posterior to the vaginal canal measuring 3.2 x 1.2 x 1.7 cm. [facility] SITE ID: [id number]
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
[2017-12-01 00:07] VITALS: BP 121/70
== END 2017-12-01 00:07 | disposition home or self-care (01) ==
LOC: EDUNIT# → ED 21:31
DX: L02.413 Cutaneous abscess of right upper limb (principal); N93.9 Abnormal uterine and vaginal bleeding, unspecified; F11.10 Opioid abuse, uncomplicated; F17.200 Nicotine dependence, unspecified, uncomplicated
CPT/HCPCS: 10060; 36415; 76801; 80053; 81001; 81025; 83605; 83690; 84702; 85025; 87040; 99283; A9270; 81003; 86900; 86901; 87086; 87491; 87591

== ENCOUNTER 2017-12-04 14:07 | Emergency (ER) | payer OTHER, MEDICAID ==
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
[2017-12-04 15:35] VITALS: BP 113/76
[2017-12-04] MEDS ORDERED: DOXYCYCLINE 100 MG TABLET PO STA (15:43)
[2017-12-04 17:10] LABS: MUDS CUTOFF CONCENTRATIONS CUTOFF CONC BELOW:
[2017-12-04 17:24] LABS: AMPHETAMINE SCREEN,URINE POSITIVE (NEGATIVE); BENZODIAZEPINES SCREEN, URINE NEGATIVE (NEGATIVE); COCAINE SCREEN URINE NEGATIVE (NEGATIVE); METHADONE SCREEN, URINE NEGATIVE (NEGATIVE); METHAMPHETAMINES SCREEN, URINE POSITIVE (NEGATIVE); OPIATE SCREEN, URINE POSITIVE (NEGATIVE); OXYCODONE SCREEN, URINE NEGATIVE (NEGATIVE); PROPOXYPHENE SCREEN, URINE NEGATIVE (NEGATIVE); TRICYCLIC ANTIDEPRESSANT,URINE NEGATIVE (NEGATIVE)
== END 2017-12-04 18:00 | disposition home or self-care (01) ==
LOC: ED 14:07
DX: Z04.41 Encounter for examination and observation following alleged adult rape (principal); L02.414 Cutaneous abscess of left upper limb; Z20.2 Contact with and (suspected) exposure to infections with a predominantly sexual mode of transmission; F17.200 Nicotine dependence, unspecified, uncomplicated
CPT/HCPCS: 0132C; 80306; A9270; 99283

== ENCOUNTER 2018-03-23 21:55 | Emergency (ER) | payer MEDICAID ==
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
[2018-03-23] MEDS ORDERED: cefTRIAXone 250 MG VIAL IM STA (23:26)
[2018-03-23] MEDS ORDERED: LIDOCAINE 1% 2 ML VIAL SUBQ ONE (23:26)
[2018-03-23] MEDS ORDERED: LORazepam 0.5 MG TABLET PO STA (23:26)
[2018-03-23] MEDS ORDERED: AZITHROMYCIN 250 MG TABLET PO STA (23:27)
[2018-03-24] MEDS ORDERED: AZITHROMYCIN 250 MG TABLET PO STA (01:51)
[2018-03-24] MEDS ORDERED: ONDANSETRON ODT 4 MG TABLET TL STA (01:51)
[2018-03-24 02:29] VITALS: BP 131/105
[2018-03-25 16:00] LABS: HIV AG/AB 4TH GEN NON-REACTIVE (NON-REACTIVE)
== END 2018-03-24 02:30 | disposition home or self-care (01) ==
LOC: ED 21:55
DX: F15.10 Other stimulant abuse, uncomplicated (principal); R20.2 Paresthesia of skin; F17.200 Nicotine dependence, unspecified, uncomplicated
CPT/HCPCS: 87389; 87491; 87591; 96372; 99283; A9270; Q0162

== ENCOUNTER 2018-05-11 07:58 | Emergency (ER) | payer MEDICAID ==
--- NOTE | 2018-05-11 08:20 | ED Physician Documentation ---
PD HPI FEMALE - Stated complaint Stated Complaint: FEMALE /LOWER BACK PX - Chief complaint Chief Complaint: General - History obtained from History obtained from: Patient - History of Present Illness Timing - onset: How many days ago (5) Timing - duration: Days (5) Timing - details: Gradual onset, Still present Associated symptoms: Back pain Contributing factors: Exposed to STD Similar symptoms before: Diagnosis (STD with trich as well.) Recently seen: Not recently seen - Additional information Additional information: 32-year-old female with a history of heroin use and treatment of STD as well as trichomonas has been treated 1 month ago and she is resumed relationships with her boyfriend and she is symptomatic again. He was not treated. She would like to treat again and he is here today for treatment. She indicates [facility] and like to do the same today. Review of Systems Constitutional: denies: Fever Respiratory: denies: Cough GI: denies: Vomiting : denies: Dysuria Skin: denies: Rash Musculoskeletal: reports: Back pain. denies: Neck pain, Extremity pain Neurologic: denies: Generalized weakness, Focal weakness, Numbness PD PAST MEDICAL HISTORY - Past Medical History Cardiovascular: None Endocrine/Autoimmune: None Musculoskeletal: Chronic back pain - Past Surgical History Past Surgical History: No - Present Medications Home Medications: Ambulatory Orders Medication Instructions Recorded Confirmed Clindamycin HCl [Clindamycin 300MG 300 mg PO Q6H 7 Days capsule 11/30/17 CAP] Doxycycline Monohydrate 100 mg PO BID #14 tablet 12/04/17 Mupirocin 1 applic TP TID #15 oint...g. 12/04/17 - Allergies Allergies/Adverse Reactions: Allergies Allergy/AdvReac Type Severity Reaction Status Date / Time No Known Drug Allergies Allergy Verified 03/23/18 22:05 - Social History Does the pt smoke?: Yes Smoking Status: Current every day smoker Does the pt drink ETOH?: No Does the pt have substance abuse?: Yes - Immunizations Immunizations are current?: No Immunizations: TDAP >10years/unknown - POLST Patient has POLST: No PD ED PE NORMAL - Vitals Vital signs reviewed: Yes (hypertensive ) - General General: Alert and oriented X 3, No acute distress, Well developed/nourished - HEENT HEENT: Atraumatic, PERRL, EOMI - Neck Neck: Supple, no meningeal sign - Respiratory Respiratory: No respiratory distress - Back Back: No CVA TTP, No spinal TTP - Derm Derm: Normal color, Warm and dry, No rash - Extremities Extremities: No deformity, No edema - Neuro Neuro: No sensory deficit Eye Opening: Spontaneous Motor: Obeys Commands Verbal: Oriented GCS Score: 15 - Psych Psych: Normal mood, Normal affect Results - Vitals Vitals: Vital Signs - 24 hr 05/11/18 05/11/18 08:08 09:42 Temperature 36.7 C Heart Rate 93 79 Respiratory 20 12 Rate Blood Pressure 134/94 H 115/86 H O2 Saturation 100 100 Oxygen O2 Source Room air - Labs Labs: Microbiology 05/11/18 08:40 Wet Prep - Final Vaginal Laboratory Tests 05/11/18 08:36 Urine Color DARK YELLOW Urine Clarity SL. CLOUDY Urine pH 6.0 Ur Specific [place] 1.025 Urine Protein NEGATIVE Urine Glucose (UA) NEGATIVE Urine Ketones NEGATIVE Urine Occult Blood NEGATIVE Urine Nitrite NEGATIVE Urine Bilirubin NEGATIVE Urine Urobilinogen 0.2 (NORMAL) Ur Leukocyte Esterase SMALL H Urine RBC 0-5 Urine WBC 4-5 Ur Squamous Epith Cells MOD Squamous H Urine Bacteria Moderate H Ur Microscopic Review INDICATED Urine Culture Comments NOT INDICATED Urine HCG, Qual NEGATIVE PD MEDICAL DECISION MAKING - ED course Complexity details: reviewed old records, reviewed results, re-evaluated patient , considered differential, d/w patient, d/w family ED course: 32-year-old female with a history of STD and trichomonas as symptoms again of trichomonas and is able to provide a specimen which test positive for trichomonas. She is treated for STD with Rocephin 250 mg IM azithromycin 1 g p.o. and 2 g of metronidazole. Her partner is treated simultaneously. She has asked about a + hep c and treatment and she is referred to [facility]. - Sepsis Event Vital Signs: Vital Signs - 24 hr 05/11/18 05/11/18 08:08 09:42 Temperature 36.7 C Heart Rate 93 79 Respiratory 20 12 Rate Blood Pressure 134/94 H 115/86 H O2 Saturation 100 100 Oxygen O2 Source Room air Departure - Departure Disposition: 01 Home, Self Care Clinical Impression: STD (female), Trichomonas vaginalis (TV) infection Condition: Stable Instructions: Hepatitis C Know Facts, ED VD Cervicitis Treated, ED Vaginitis Trichomonas Follow-Up: Fly,Mindy M, ANIMAL CARE WORKER [Primary Care Provider] - Soo Cruz MD [Physician No Access] - Discharge Date/Time: 05/11/18 09:46
[2018-05-11 08:44] LABS: BILIRUBIN,URINE NEGATIVE (NEGATIVE); CLARITY,URINE SL. CLOUDY (CLEAR); GLUCOSE, URINE (UA) NEGATIVE (NEGATIVE); KETONES,URINE (UA) NEGATIVE (NEGATIVE); LEUKOCYTE ESTERASE, URINE SMALL (NEGATIVE); NITRITE,URINE NEGATIVE (NEGATIVE); OCCULT BLOOD,URINE NEGATIVE (NEGATIVE); PROTEIN,URINE NEGATIVE (NEGATIVE); UROBILINOGEN,URINE 0.2 (NORMAL) E.U./dL (NORMAL)
[2018-05-11 08:47] LABS: HCG UR QUAL NEGATIVE
[2018-05-11 08:55] LABS: BACTERIA,URINE Moderate /HPF (None Seen); RBC,URINE 0-5 /HPF (0-5); SQUAMOUS EPITHELIAL CELL,UR MOD Squamous (<= Few)
[2018-05-11] MEDS ORDERED: LIDOCAINE 1% 2 ML VIAL SUBQ ONE (09:20)
[2018-05-11] MEDS ORDERED: cefTRIAXone 250 MG VIAL IM STA (09:20)
[2018-05-11] MEDS ORDERED: AZITHROMYCIN 250 MG TABLET PO STA (09:20)
[2018-05-11] MEDS ORDERED: metroNIDAZOLE 250 MG TABLET PO STA (09:21)
[2018-05-11 09:43] VITALS: BP 115/86
== END 2018-05-11 09:46 | disposition home or self-care (01) ==
LOC: ED 07:58
DX: A59.01 Trichomonal vulvovaginitis (principal); F17.200 Nicotine dependence, unspecified, uncomplicated
CPT/HCPCS: 81001; 81025; 87210; 96372; 99283; A9270; 81003; 87086

== ENCOUNTER 2018-09-07 19:18 | Emergency (ER) | payer MEDICAID ==
[2018-09-07 20:36] LABS: BILIRUBIN,URINE NEGATIVE (NEGATIVE); GLUCOSE, URINE (UA) NEGATIVE (NEGATIVE); KETONES,URINE (UA) NEGATIVE (NEGATIVE); LEUKOCYTE ESTERASE, URINE NEGATIVE (NEGATIVE); NITRITE,URINE NEGATIVE (NEGATIVE); OCCULT BLOOD,URINE NEGATIVE (NEGATIVE); PH,URINE 5.5 PH (5.0-7.5); PROTEIN,URINE NEGATIVE (NEGATIVE); UROBILINOGEN,URINE 0.2 (NORMAL) E.U./dL (NORMAL)
[2018-09-07 20:38] LABS: CLARITY,URINE CLEAR (CLEAR); HCG UR QUAL NEGATIVE
--- NOTE | 2018-09-07 20:54 | ED Physician Documentation ---
History of Present Illness - Stated complaint Stated Complaint: FEMALE /SORES - Chief complaint Chief Complaint: Wound - History obtained from History obtained from: Patient - History of Present Illness Timing: How many weeks ago (1) Improved by: no ameliorating factors Worsened by: no exacerbating factors - Additonal information Additional information: c/o 1 week of painful, red swelling right buttock and left thigh. She has had similar lesions in the past, treated with both PO antibiotics and intranasal topical antibiotic. She also c/o several days of malodorous vaginal discharge with mild pruritis, requests STD testing. Review of Systems Constitutional: denies: Fever GI: denies: Abdominal Pain : reports: Discharge. denies: Dysuria, Frequency Skin: reports: Lesions PD PAST MEDICAL HISTORY - Past Medical History Past Medical History: Yes Cardiovascular: None Endocrine/Autoimmune: None Musculoskeletal: Chronic back pain - Past Surgical History Past Surgical History: No - Present Medications Home Medications: Ambulatory Orders Medication Instructions Recorded Confirmed Mupirocin Calcium [Bactroban Nasal] 1 film NS BID 5 Days #1 oint...g. 09/07/18 Sulfamethox/Trimeth 800/160 1 each PO BID #14 tablet 09/07/18 [Bactrim Ds 800/160] - Allergies Allergies/Adverse Reactions: Allergies Allergy/AdvReac Type Severity Reaction Status Date / Time No Known Drug Allergies Allergy Verified 09/07/18 19:31 - Social History Does the pt smoke?: Yes Smoking Status: Current every day smoker Does the pt drink ETOH?: No Does the pt have substance abuse?: Yes Substance Use and Type: Meth - Immunizations Immunizations are current?: Yes Immunizations: TDAP >10years/unknown - POLST Patient has POLST: No PD ED PE NORMAL - Vitals Vital signs reviewed: Yes - General General: Alert and oriented X 3, No acute distress, Well developed/nourished - Abdomen Abdomen: Soft, Non tender - Derm Derm: Other (2-3 cm diameter firm, tender erythema on right buttock and left anteromedial thigh without fluctuance or discharge. ) Results - Vitals Vitals: Vital Signs - 24 hr 09/07/18 09/07/18 19:28 21:45 Temperature 36.2 C L Heart Rate 87 86 Respiratory 16 16 Rate Blood Pressure 117/78 122/68 O2 Saturation 98 99 Oxygen O2 Source Room air - Labs Labs: Laboratory Tests 09/07/18 20:28 Urine Color YELLOW Urine Clarity CLEAR Urine pH 5.5 Ur Specific [place] >=1.030 H Urine Protein NEGATIVE Urine Glucose (UA) NEGATIVE Urine Ketones NEGATIVE Urine Occult Blood NEGATIVE Urine Nitrite NEGATIVE Urine Bilirubin NEGATIVE Urine Urobilinogen 0.2 (NORMAL) Ur Leukocyte Esterase NEGATIVE Ur Microscopic Review NOT INDICATED Urine Culture Comments NOT INDICATED Urine HCG, Qual NEGATIVE PD MEDICAL DECISION MAKING - ED course Complexity details: reviewed old records, considered differential, d/w patient ED course: Patient says she has had trichomonas in the past and her current symptoms do not feel c/w the symptoms she had with trichomoniasis. We discussed plan, which is gonorrhea and chlamydia testing and empiric treatment for these with both zithromax and rocephin. She was agreeable to this but when RN went to give these medications, patient declined the rocephin, says she wants results first. She understands that the results will not be available for 1-2 days. Also given bactrim in ED as well as rx for both bactrim and nasal mupirocin. Departure - Departure Disposition: 01 Home, Self Care Clinical Impression: Cellulitis, Vaginal discharge Condition: Good Instructions: ED Staph Infec Abx Tx Only, ED Chlamydia GC Poss Culture Pend Follow-Up: Mindy Scott ARNP [Primary Care Provider] - Prescriptions: Mupirocin Calcium [Bactroban Nasal] 1 film NS BID 5 Days #1 oint...g. Sulfamethox/Trimeth 800/160 [Bactrim Ds 800/160] 1 each PO BID #14 tablet Discharge Date/Time: 09/07/18 21:45
[2018-09-07] MEDS ORDERED: SULFAMETH/TRIMETH DS 800/160 MG TABLET PO STA (21:10)
[2018-09-07] MEDS ORDERED: LIDOCAINE 1% 2 ML VIAL SUBQ ONE (21:11)
[2018-09-07] MEDS ORDERED: cefTRIAXone 250 MG VIAL IM STA (21:11)
[2018-09-07] MEDS ORDERED: AZITHROMYCIN 250 MG TABLET PO STA (21:11)
[2018-09-07 22:14] VITALS: BP 122/68
== END 2018-09-07 21:45 | disposition home or self-care (01) ==
LOC: ED 19:18
DX: L03.317 Cellulitis of buttock (principal); L03.116 Cellulitis of left lower limb; N89.8 Other specified noninflammatory disorders of vagina; F17.200 Nicotine dependence, unspecified, uncomplicated
CPT/HCPCS: 81003; 81025; 87491; 87591; 99283; A9270; 81001; 87086

== ENCOUNTER 2018-10-09 14:09 | Emergency (ER) | payer MEDICAID ==
[2018-10-09 14:23] VITALS: BP 115/81
--- NOTE | 2018-10-09 14:31 | ED Physician Documentation ---
PD HPI OPHTHO - Stated complaint Stated Complaint: LT EYE SWELLING - Chief complaint Chief Complaint: Heent - History obtained from History obtained from: Patient - History of Present Illness Timing - onset: Yesterday (32-year-old woman with history of heroin abuse presents with swelling of the lower left eyelid that is relatively painless for the last couple of days without visual deficit. She also notes that she has multiple picked at sores that may be infected and she has a history of staph infections.) Review of Systems Constitutional: denies: Fever, Chills Respiratory: denies: Dyspnea, Cough GI: denies: Abdominal Pain, Nausea, Vomiting PD PAST MEDICAL HISTORY - Past Medical History Cardiovascular: None Endocrine/Autoimmune: None Musculoskeletal: Chronic back pain - Past Surgical History Past Surgical History: No - Present Medications Home Medications: Ambulatory Orders Medication Instructions Recorded Confirmed Mupirocin Calcium [Bactroban Nasal] 1 film NS BID 5 Days #1 oint...g. 09/07/18 Sulfamethox/Trimeth 800/160 1 each PO BID #14 tablet 09/07/18 [Bactrim Ds 800/160] Chlorhexidine Gluconate [Hibiclens] 5 ml TP DAILY 10 Days #1 liquid 10/09/18 Erythromycin Base [Erythromycin 1 applic OP 5XD 7 Days #1 oint...g. 10/09/18 Ophthalmic Ointment] Mupirocin 1 gm HAM BID 10 Days #1 oin.pf.lavell 10/09/18 Sulfamethoxazole/Trimethoprim 1 each PO BID #20 tablet 10/09/18 [Sulfamethoxazole-Tmp Ds Tablet] - Allergies Allergies/Adverse Reactions: Allergies Allergy/AdvReac Type Severity Reaction Status Date / Time No Known Drug Allergies Allergy Verified 09/07/18 19:31 - Social History Does the pt smoke?: Yes Smoking Status: Current every day smoker Does the pt drink ETOH?: No Does the pt have substance abuse?: Yes - Immunizations Immunizations are current?: Yes Immunizations: TDAP >10years/unknown - POLST Patient has POLST: No PD ED PE NORMAL - Vitals Vital signs reviewed: Yes - General General: Alert and oriented X 3, No acute distress - HEENT HEENT: PERRL, EOMI, Other (There is a small stye lateral on the left lower eyelid with some eyelid swelling but no cellulitis) - Neck Neck: Supple, no meningeal sign, No bony TTP - Derm Derm: Other (Notable picked at areas and folliculitis on the back and face.) - Neuro Neuro: Alert and oriented X 3, Normal speech Results - Vitals Vitals: Vital Signs - 24 hr 10/09/18 14:20 Temperature 36.8 C Heart Rate 98 Respiratory 16 Rate Blood Pressure 115/81 H O2 Saturation 100 Oxygen O2 Source Room air Departure - Departure Disposition: Home, Self Care Clinical Impression: Staph skin infection Stye Qualifiers: Laterality: left Eyelid: lower Qualified Code(s): H00.015 - Hordeolum externum left lower eyelid Condition: Good Record reviewed to determine appropriate education?: Yes Instructions: ED Chaljanetion, ED Staph Infec Abx Tx Only Prescriptions: Chlorhexidine Gluconate [Hibiclens] 5 ml TP DAILY 10 Days #1 liquid Erythromycin Base [Erythromycin Ophthalmic Ointment] 1 applic OP 5XD 7 Days #1 oint...g. Mupirocin 1 gm HAM BID 10 Days #1 oin.pf.lavell Sulfamethoxazole/Trimethoprim [Sulfamethoxazole-Tmp Ds Tablet] 1 each PO BID #20 tablet Comments: Call your doctor to arrange a follow-up appointment, make the next available appointment. In the interim, return anytime if worse or if new symptoms develop.
== END 2018-10-09 14:35 | disposition home or self-care (01) ==
LOC: ED 14:09
DX: L08.89 Other specified local infections of the skin and subcutaneous tissue (principal); B95.8 Unspecified staphylococcus as the cause of diseases classified elsewhere; H00.015 Hordeolum externum left lower eyelid
CPT/HCPCS: 99283

== ENCOUNTER 2018-11-29 08:45 | Emergency (ER) | payer MEDICAID ==
[2018-11-29 09:26] VITALS: BP 120/74
--- NOTE | 2018-11-29 09:29 | ED Physician Documentation ---
History of Present Illness - Stated complaint Stated Complaint: SORES ON HEAD/COLD SX - Chief complaint Chief Complaint: Wound - Additonal information Additional information: hx from pt 32 f denies preg to ED multiple complaints sore on her head after dying hair lost her bactroban nasal ointment cough and soa - no leg swelling no fever toothache no dentist Review of Systems Constitutional: denies: Fever, Chills Throat: reports: Dental pain / toothache Respiratory: reports: Cough : denies: Now EGA Skin: reports: Lesions PD PAST MEDICAL HISTORY - Past Medical History Past Medical History: Yes Cardiovascular: None Endocrine/Autoimmune: None Musculoskeletal: Chronic back pain - Past Surgical History Past Surgical History: No - Present Medications Home Medications: Ambulatory Orders Medication Instructions Recorded Confirmed Amoxicillin 500 mg PO Q8HR #30 capsule 11/29/18 Mupirocin Calcium [Bactroban Nasal] 1 gm NS BID #10 tub 11/29/18 Mupirocin Calcium [Bactroban] 1 applic TP BID #30 g 11/29/18 - Allergies Allergies/Adverse Reactions: Allergies Allergy/AdvReac Type Severity Reaction Status Date / Time No Known Drug Allergies Allergy Verified 11/29/18 08:51 - Social History Does the pt smoke?: Yes Smoking Status: Current every day smoker Does the pt drink ETOH?: No Does the pt have substance abuse?: Yes - Immunizations Immunizations are current?: Yes Immunizations: TDAP >10years/unknown - POLST Patient has POLST: No PD ED PE NORMAL - Vitals Vital signs reviewed: Yes - HEENT HEENT: Other (extensive decay some swelling L lower mandible not submandibular no neck swell no trismus) - Neck Neck: Supple, no meningeal sign - Cardiac Cardiac: RRR - Respiratory Respiratory: No respiratory distress, Clear bilaterally - Abdomen Abdomen: Soft, Non tender - Derm Derm: Other (open skin sores scalp neck upper back) - Extremities Extremities: No edema, No calf tenderness / cord - Neuro Neuro: Alert and oriented X 3 Results - Vitals Vitals: Vital Signs - 24 hr 11/29/18 08:51 Temperature 35.7 C L Heart Rate 84 Respiratory 20 Rate Blood Pressure 120/74 O2 Saturation 98 Oxygen O2 Source Room air Departure - Departure Disposition: Home, Self Care Clinical Impression: Dental infection, Skin sore Condition: Good Instructions: ED Staph Infec Abx Tx Only, ED Abscess Dental Prescriptions: Amoxicillin 500 mg PO Q8HR #30 capsule Mupirocin Calcium [Bactroban] 1 applic TP BID #30 g Mupirocin Calcium [Bactroban Nasal] 1 gm NS BID #10 tub
== END 2018-11-29 09:50 | disposition home or self-care (01) ==
LOC: ED 08:45
DX: K04.7 Periapical abscess without sinus (principal); L98.9 Disorder of the skin and subcutaneous tissue, unspecified; F17.200 Nicotine dependence, unspecified, uncomplicated
CPT/HCPCS: 99283

== ENCOUNTER 2018-12-21 21:26 | Emergency (ER) | payer MEDICAID ==
--- NOTE | 2018-12-21 21:50 | ED Physician Documentation ---
PD HPI HEENT - Stated complaint Stated Complaint: NAUSEA/MOUTH SORE - Chief complaint Chief Complaint: Heent - History obtained from History obtained from: Patient - History of Present Illness Timing - onset: How many days ago (2) Timing - duration: Days (2) Timing - details: Gradual onset, Still present Location: Tooth, Other (left chin with some draining of a sore, and also having drainage from tooth/gum base lower left.) Associated symptoms: Swollen nodes (left anterior neck), Facial swelling (left chin). No: Fever, Congestion, Headache, Cough Similar symptoms before: Diagnosis (MRSA infections in the past. Also dental caries in the past.) Review of Systems Constitutional: denies: Fever, Chills Nose: denies: Rhinorrhea / runny nose, Congestion Throat: reports: Dental pain / toothache. denies: Sore throat Respiratory: denies: Cough PD PAST MEDICAL HISTORY - Past Medical History Past Medical History: Yes Cardiovascular: None Endocrine/Autoimmune: None Musculoskeletal: Chronic back pain - Past Surgical History Past Surgical History: No - Present Medications Home Medications: Ambulatory Orders Medication Instructions Recorded Confirmed Chlorhexidine Gluconate [Hibiclens] 15 ml TP DAILY #236 ml 12/21/18 Doxycycline Hyclate 100 mg PO BID #20 capsule 12/21/18 Mupirocin 1 applic TP TID #15 g 12/21/18 Naproxen 500 mg PO BID #20 tablet 12/21/18 - Allergies Allergies/Adverse Reactions: Allergies Allergy/AdvReac Type Severity Reaction Status Date / Time No Known Drug Allergies Allergy Verified 12/21/18 21:33 - Social History Does the pt smoke?: Yes Smoking Status: Current every day smoker Does the pt drink ETOH?: No Does the pt have substance abuse?: Yes - Immunizations Immunizations are current?: Yes Immunizations: TDAP >10years/unknown - POLST Patient has POLST: No PD ED PE NORMAL - Vitals Vital signs reviewed: Yes - General General: Alert and oriented X 3, No acute distress, Well developed/nourished - HEENT HEENT: Pharynx benign. No: Dentition benign (significiant diffuse decay. Left lower tooth with decay to gumline and the gum with some redness but no fluctuance. There is a small skin sore left chin without fluctuance and not drainage at the moment. They do not seem to connect in line. ) - Neck Neck: Supple, no meningeal sign, No adenopathy - Cardiac Cardiac: RRR, No murmur - Respiratory Respiratory: Clear bilaterally Results - Vitals Vitals: Vital Signs - 24 hr 12/21/18 12/21/18 21:31 22:22 Temperature 36.9 C 37.1 C Heart Rate 95 68 Respiratory 16 16 Rate Blood Pressure 132/72 H 123/66 O2 Saturation 99 98 Oxygen O2 Source Room air PD MEDICAL DECISION MAKING - ED course Complexity details: considered differential (likely seperate tooth and skin infections and does not seem in line, like a fistula tract or such. ), d/w patient Departure - Departure Disposition: Home, Self Care Clinical Impression: Dental infection Condition: Stable Record reviewed to determine appropriate education?: Yes Instructions: ED Abscess Tooth Follow-Up: Mindy Scott ARNP [Primary Care Provider] - Prescriptions: Chlorhexidine Gluconate [Hibiclens] 15 ml TP DAILY #236 ml Doxycycline Hyclate 100 mg PO BID #20 capsule Mupirocin 1 applic TP TID #15 g Naproxen 500 mg PO BID #20 tablet Comments: Staff can cause dental infections as well and so likely the sore in your chin and the tooth drainage or likely the same. Use doxycycline antibiotic twice daily as directed. Mupirocin antibiotic ointment over the skin sore and also in the nasal passage and lightly in the nailbeds twice daily over the next week. Use chlorhexidine whole body wash in the shower daily for the next week and then once or twice a week after that to reduce recurrent infections. Follow-up with dentist for more definitive care of the teeth. Naproxen if needed for pain and inflammation. Add Tylenol if needed. Recheck if not improving over the next several days. Discharge Date/Time: 12/21/18 22:22
[2018-12-21] MEDS ORDERED: NAPROXEN 250 MG TABLET PO STA (22:04)
[2018-12-21] MEDS ORDERED: DOXYCYCLINE 100 MG TABLET PO STA (22:04)
[2018-12-21] MEDS ORDERED: MUPIROCIN 2% OINT 1 GM TOP STA (22:04)
[2018-12-21 22:24] VITALS: BP 123/66
== END 2018-12-21 22:22 | disposition home or self-care (01) ==
LOC: ED 21:26
DX: K04.7 Periapical abscess without sinus (principal); K02.9 Dental caries, unspecified; L98.8 Other specified disorders of the skin and subcutaneous tissue; F17.200 Nicotine dependence, unspecified, uncomplicated
CPT/HCPCS: 99283; A9270

== ENCOUNTER 2019-01-27 10:08 | Emergency (ER) | payer MEDICAID ==
[2019-01-27] MEDS ORDERED: CLINDAMYCIN 150 MG CAPSULE PO STA (12:05)
[2019-01-27] MEDS ORDERED: IBUPROFEN 800 MG TABLET PO STA (12:05)
--- NOTE | 2019-01-27 12:07 | ED Physician Documentation ---
PD HPI HEENT - Stated complaint Stated Complaint: SWOLLEN FACE - Chief complaint Chief Complaint: Heent - History obtained from History obtained from: Patient - History of Present Illness Timing - onset: Other (This is a 33-year-old woman with problems with heroin addiction and has not seen a dentist in many years. She has had an odd feeling from a left maxillary canine for the last few days with swelling for the last day or so. No fevers. No possibility of . She plans to go into detox tonight and will be started on Suboxone and declines any narcotics for dental pain.) Review of Systems Constitutional: denies: Fever, Chills Nose: denies: Rhinorrhea / runny nose, Congestion Throat: denies: Sore throat Cardiac: denies: Chest pain / pressure, Palpitations PD PAST MEDICAL HISTORY - Past Medical History Cardiovascular: None Endocrine/Autoimmune: None Musculoskeletal: Chronic back pain - Past Surgical History Past Surgical History: No - Present Medications Home Medications: Ambulatory Orders Medication Instructions Recorded Confirmed Clindamycin HCl [Clindamycin 300MG 300 mg PO Q6H #28 capsule 01/27/19 CAP] Ibuprofen [Motrin] 800 mg PO Q8H PRN #30 tablet 01/27/19 - Allergies Allergies/Adverse Reactions: Allergies Allergy/AdvReac Type Severity Reaction Status Date / Time No Known Drug Allergies Allergy Verified 01/27/19 10:26 - Social History Does the pt smoke?: Yes Smoking Status: Current every day smoker Does the pt drink ETOH?: No Does the pt have substance abuse?: Yes - Immunizations Immunizations are current?: Yes Immunizations: TDAP >10years/unknown - POLST Patient has POLST: No PD ED PE NORMAL - Vitals Vital signs reviewed: Yes - General General: Alert and oriented X 3, No acute distress - HEENT HEENT: Other (Generally terrible dentition. There are a lot of cavities. She has a tender left maxillary Canine with very mild overlying facial swelling. No palpable drainable abscess.) - Neck Neck: Supple, no meningeal sign, No bony TTP - Neuro Neuro: Alert and oriented X 3, Normal speech Results - Vitals Vitals: Vital Signs - 24 hr 01/27/19 10:24 Temperature 36.3 C L Heart Rate 87 Respiratory 18 Rate Blood Pressure 119/78 O2 Saturation 97 Oxygen O2 Source Room air Departure - Departure Disposition: 01 Home, Self Care Clinical Impression: Pain due to dental caries, Dental abscess Condition: Good Record reviewed to determine appropriate education?: Yes Instructions: ED Abscess Dental Prescriptions: Clindamycin HCl [Clindamycin 300MG CAP] 300 mg PO Q6H #28 capsule Ibuprofen [Motrin] 800 mg PO Q8H PRN #30 tablet PRN Reason: PAIN &/OR FEVER Comments: It is very important that you follow-up with a dentist. When it comes to dental problems like yours, the emergency department can only offer a short-term solution to your long-term problem. A couple of low cost options for dental care include: [facility] in [place], calls [phone] for an appointment Or [facility] in [place], call [phone] for an appointment.
[2019-01-27 12:14] VITALS: BP 120/76
== END 2019-01-27 12:13 | disposition home or self-care (01) ==
LOC: ED 10:08
DX: K04.7 Periapical abscess without sinus (principal); K02.9 Dental caries, unspecified; F17.200 Nicotine dependence, unspecified, uncomplicated
CPT/HCPCS: 99283; A9270

== ENCOUNTER 2019-03-28 15:21 | Emergency (ER) | payer SELFPAY ==
[2019-03-28 15:57] VITALS: BP 104/74
--- NOTE | 2019-03-28 17:09 | ED Physician Documentation ---
PD HPI ABD PAIN - Stated complaint Stated Complaint: FEM - Chief complaint Chief Complaint: Abd Pain - History obtained from History obtained from: Patient - History of Present Illness Timing - onset: Today (33-year-old woman with history of heroin abuse. She says she last used a week ago but admits to trying more recently but could not find a vein. She does seem slightly sedated at this juncture. She was in the shower at 4 PM when she had a single large Gush of painless vaginal bleeding. That has since resolved. She is 3 weeks late on her menses. She is sexually active. She states she has been having "a lot" of sex lately.) Review of Systems Ten Systems: 10 systems reviewed and negative Constitutional: reports: Reviewed and negative Nose: reports: Reviewed and negative Throat: reports: Reviewed and negative Cardiac: reports: Reviewed and negative PD PAST MEDICAL HISTORY - Past Medical History Cardiovascular: None Endocrine/Autoimmune: None Musculoskeletal: Chronic back pain - Past Surgical History Past Surgical History: No - Allergies Allergies/Adverse Reactions: Allergies Allergy/AdvReac Type Severity Reaction Status Date / Time No Known Drug Allergies Allergy Verified 03/28/19 15:57 - Social History Does the pt smoke?: Yes Smoking Status: Current every day smoker Does the pt drink ETOH?: No Does the pt have substance abuse?: Yes - Family History Family history: reports: Non contributory - Immunizations Immunizations are current?: Yes Immunizations: TDAP >10years/unknown - POLST Patient has POLST: No PD ED PE NORMAL - Vitals Vital signs reviewed: Yes - General General: Alert and oriented X 3 (Slightly sedated) - Neck Neck: Supple, no meningeal sign, No bony TTP - Abdomen Abdomen: Normal bowel sounds, Soft, Non tender - Back Back: No CVA TTP, No spinal TTP - Derm Derm: Normal color - Neuro Neuro: Alert and oriented X 3, Normal speech Results - Vitals Vitals: Vital Signs - 24 hr 03/28/19 15:55 Temperature 36.8 C Heart Rate 80 Respiratory 20 Rate Blood Pressure 104/74 O2 Saturation 96 Oxygen O2 Source Room air PD MEDICAL DECISION MAKING - ED course ED course: On my evaluation we discussed the differential diagnosis and sort of differing pathways for work-up depending on whether or not a test might be positive. Subsequent to my evaluation I guess she eloped without further medical treatments I was notified of this after the patient had left. Departure - Departure Disposition: ED Elope Clinical Impression: Vaginal bleeding
== END 2019-03-28 17:34 | disposition left against medical advice (07) ==
LOC: ED 15:21
DX: N93.9 Abnormal uterine and vaginal bleeding, unspecified (principal); F17.200 Nicotine dependence, unspecified, uncomplicated; Z53.20 Procedure and treatment not carried out because of patient's decision for unspecified reasons
CPT/HCPCS: 80053; 83690; 84702; 85025; 86900; 86901; 99283

== ENCOUNTER 2019-04-05 20:25 | Outpatient (CLI) | payer MEDICAID | END 2019-04-05 20:26 | disposition critical access hospital (66) | LOC: EMS 20:25 | PROVIDERS: ATTEND Surgery | DX: T40.1X2A Poisoning by heroin, intentional self-harm, initial encounter (principal) ==

== ENCOUNTER 2019-04-05 21:02 | Emergency (ER) | payer MEDICAID ==
[2019-04-05] MEDS ORDERED: NALOXONE 0.4 MG/ML VIAL IVP STA (21:16)
--- NOTE | 2019-04-05 21:27 | ED Physician Documentation ---
PD HPI ALTERED MENTAL STATUS - Stated complaint Stated Complaint: OD - Chief complaint Chief Complaint: Neuro - History obtained from History obtained from: Friend, EMS - History of Present Illness Timing - onset: Today (just prior to arrival, pt found passed out in a bathroom) Timing - duration: Minutes (30) Timing - details: Abrupt onset Quality / character: Unresponsive, Other Associated symptoms: No: Fever, Headache Contributing factors: Substance abuse, Other (pt admits to using black tar heroin perior to arrival) Basline status: Confused Similar symptoms before: Diagnosis (heroin abuse) - Additional information Additional information: limited history due to altered mental status and heroin overdose Review of Systems Unable to obtain: AMS, Uncooperative PD PAST MEDICAL HISTORY - Past Medical History Past Medical History: Yes Cardiovascular: None Respiratory: None Neuro: None Endocrine/Autoimmune: None GI: 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 : None HEENT: None Psych: None Musculoskeletal: Chronic back pain Derm: None - Past Surgical History Past Surgical History: No - Allergies Allergies/Adverse Reactions: Allergies Allergy/AdvReac Type Severity Reaction Status Date / Time No Known Drug Allergies Allergy Verified 04/05/19 21:12 - Social History Does the pt smoke?: Yes Smoking Status: Current every day smoker Does the pt drink ETOH?: No Does the pt have substance abuse?: Yes Substance Use and Type: Heroin - Immunizations Immunizations are current?: Yes Immunizations: TDAP >10years/unknown - POLST Patient has POLST: No PD ED PE NORMAL - Vitals Vital signs reviewed: Yes - HEENT HEENT: Atraumatic, EOMI, Other (pupils pinpoint bilaterally ) - Neck Neck: Supple, no meningeal sign, No JVD - Cardiac Cardiac: RRR, No murmur, No gallop, No rub - Abdomen Abdomen: Soft, Non tender, Non distended - Female Female : Deferred - Rectal Rectal: Deferred - Neuro Eye Opening: Spontaneous Motor: Localizes to Pain Verbal: Confused GCS Score: 13 Results - Vitals Vitals: Vital Signs - 24 hr 04/05/19 04/05/19 04/05/19 21:04 21:14 21:23 Temperature 35.9 C L Heart Rate 87 84 91 Respiratory 18 17 18 Rate Blood Pressure 114/79 O2 Saturation 99 78 L 96 04/05/19 04/05/19 04/05/19 21:37 21:46 22:15 Temperature Heart Rate Respiratory 18 17 16 Rate Blood Pressure O2 Saturation 04/05/19 04/06/19 04/06/19 23:01 00:18 01:20 Temperature Heart Rate 82 76 Respiratory 15 14 14 Rate Blood Pressure 105/75 117/78 O2 Saturation 97 95 04/06/19 04/06/19 04/06/19 03:04 04:19 05:03 Temperature Heart Rate 71 76 Respiratory 15 15 16 Rate Blood Pressure 112/75 O2 Saturation 95 96 04/06/19 04/06/19 05:47 06:11 Temperature Heart Rate 74 Respiratory 16 16 Rate Blood Pressure 108/74 O2 Saturation 96 Oxygen O2 Source Room air PD MEDICAL DECISION MAKING - ED course Complexity details: re-evaluated patient, considered differential ED course: 33 y/o F found passed out and unresponsive. Admits to taking heroin prior to this episode. She has no signs of trauma. She has intermittently been up, conversational and walking around and then falling asleep. Friend reports she saw the patient just prior to this episode and confirms no suspicion of other ingestions or trauma. Pt refused to allow narcan administration but is intermittently awake thus will monitor. Will continue to monitor. Pt awake, ambulating, coherent. Will discharge. Pt left without paperwork. Departure - Departure Disposition: Against Medical Advice Clinical Impression: Heroin abuse, Overdose, Substance abuse Condition: Good Instructions: ED Drug Abuse General Follow-Up: Mindy Scott ARNP [Primary Care Provider] - Within 1 week
[2019-04-06 06:12] VITALS: BP 108/74
== END 2019-04-06 06:25 | disposition left against medical advice (07) ==
LOC: EDUNIT# → ED 21:02
DX: T40.1X1A Poisoning by heroin, accidental (unintentional), initial encounter (principal); R41.82 Altered mental status, unspecified; F11.188 Opioid abuse with other opioid-induced disorder; F17.200 Nicotine dependence, unspecified, uncomplicated
CPT/HCPCS: 99284

== ENCOUNTER 2019-08-14 04:10 | Emergency (ER) | payer MEDICAID ==
[2019-08-14 04:38] VITALS: BP 124/76
--- NOTE | 2019-08-14 04:53 | ED Physician Documentation ---
PD HPI NVD - Stated complaint Stated Complaint: DIARRHEA/VOMITING - Chief complaint Chief Complaint: Abd Pain - History obtained from History obtained from: Patient - History of Present Illness Timing - onset: How many days ago (2) Timing - duration: Days Timing - details: Abrupt onset Pain level now: 0 Associated symptoms: No: Fever, Abdominal pain Similar symptoms before: Diagnosis (similar to previous episode of giardiasis) Recently seen: Not recently seen - Additonal information Additional information: c/o diarrhea x 2 days, feels "gassy" (per patient). also mild nausea, vomiting (tolerates most PO). She feels symptoms are very similar to episode of giardiasis that she had 2-3 months ago (she says this was diagnosed while she was incarcerated although symptoms had started prior to incarceration). Symptoms of previous episode completely resolved with PO antibiotics. Review of Systems Constitutional: denies: Fever, Chills, Sweats Cardiac: reports: Reviewed and negative Respiratory: reports: Reviewed and negative GI: reports: Nausea, Vomiting, Diarrhea. denies: Abdominal Pain : denies: Dysuria, Frequency, Now EGA PD PAST MEDICAL HISTORY - Past Medical History Cardiovascular: None Respiratory: None Neuro: None Endocrine/Autoimmune: None GI: None HERBOLOGIST: None : None HEENT: None Psych: None Musculoskeletal: Chronic back pain Derm: None - Past Surgical History Past Surgical History: No - Present Medications Home Medications: Ambulatory Orders Medication Instructions Recorded Confirmed Tinidazole 2 gm PO ONCE #4 tablet 08/14/19 - Allergies Allergies/Adverse Reactions: Allergies Allergy/AdvReac Type Severity Reaction Status Date / Time No Known Drug Allergies Allergy Verified 08/14/19 04:16 - Social History Does the pt smoke?: Yes Smoking Status: Current every day smoker Does the pt drink ETOH?: No Does the pt have substance abuse?: Yes - Immunizations Immunizations are current?: Yes Immunizations: TDAP >10years/unknown - POLST Patient has POLST: No PD ED PE NORMAL - Vitals Vital signs reviewed: Yes - General General: Alert and oriented X 3, No acute distress, Well developed/nourished - HEENT HEENT: Moist mucous membranes - Cardiac Cardiac: RRR, No murmur - Respiratory Respiratory: No respiratory distress, Clear bilaterally - Abdomen Abdomen: Normal bowel sounds, Soft, Non tender, Non distended Results - Vitals Vitals: Vital Signs - 24 hr 08/14/19 04:13 Temperature 36.7 C Heart Rate 105 H Respiratory 16 Rate Blood Pressure 124/76 O2 Saturation 100 Oxygen O2 Source Room air - Labs Labs: Microbiology 08/14/19 05:00 Campylobacter Antigen Assay - Final Stool Laboratory Tests 08/14/19 05:00 C. difficile Tox B Gene NEGATIVE PD MEDICAL DECISION MAKING - ED course Complexity details: considered differential, d/w patient ED course: NAD and appears well hydrated (MMM). She tolerates most PO and does not sense that she is dehydrated. She feels strongly that the symptoms are the same as a previous episode of giardiasis. I offered IV fluids and blood tests, but this does not appear to be necessary at this time and patient agrees with this. Plan is to submit stool sample but treat empirically for giardiasis. She understands she should return if worse in any way. I also explained to her that if this is giardiasis and the antimicrobial works, symptoms should resolve within 5-7 days. Departure - Departure Disposition: 01 Home, Self Care Clinical Impression: Diarrhea Condition: Good Instructions: Giardiasis Follow-Up: SHERLEY FARRELL ARNP [Primary Care Provider] - Prescriptions: Tinidazole 2 gm PO ONCE #4 tablet Comments: The tests on your stool sample are pending. The diagnosis of giardiasis has not been confirmed at this time, but you are being given a prescription for a one-time dose of medication that would treat giardiasis; this is based on the similarity of the symptoms to your previous episode of giardiasis. Discharge Date/Time: 08/14/19 05:27
== END 2019-08-14 05:27 | disposition home or self-care (01) ==
LOC: ED 04:10
DX: R19.7 Diarrhea, unspecified (principal); R11.2 Nausea with vomiting, unspecified; Z86.19 Personal history of other infectious and parasitic diseases; F17.200 Nicotine dependence, unspecified, uncomplicated
CPT/HCPCS: 87015; 87045; 87046; 87272; 87329; 87493; 99283; 99284

== ENCOUNTER 2019-10-15 16:43 | Emergency (ER) | payer MEDICAID ==
[2019-10-15 16:54] VITALS: BP 123/68
[2019-10-15] MEDS ORDERED: cefTRIAXone 250 MG VIAL IM STA (16:59)
[2019-10-15] MEDS ORDERED: LIDOCAINE 1% 2 ML VIAL MC ONE (16:59)
[2019-10-15] MEDS ORDERED: AZITHROMYCIN 250 MG TABLET PO STA (16:59)
--- NOTE | 2019-10-15 17:02 | ED Physician Documentation ---
History of Present Illness - Stated complaint Stated Complaint: FEM - Chief complaint Chief Complaint: General - History obtained from History obtained from: Patient (She had a questionable sexual encounter a few nights ago and now has a days worth of vaginal burning and discharge without pelvic pain or dysuria.) - Additonal information Additional information: Looks healthier than I have seen her in the past, she is clean from heroin and on vivitrol. 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 : None HEENT: None Psych: None Musculoskeletal: Chronic back pain Derm: None - Past Surgical History Past Surgical History: No - Present Medications Home Medications: Ambulatory Orders Medication Instructions Recorded Confirmed Tinidazole 2 gm PO ONCE #4 tablet 08/14/19 - Allergies Allergies/Adverse Reactions: Allergies Allergy/AdvReac Type Severity Reaction Status Date / Time No Known Drug Allergies Allergy Verified 08/14/19 04:16 - Social History Does the pt smoke?: Yes Smoking Status: Current every day smoker Does the pt drink ETOH?: No Does the pt have substance abuse?: Yes - Immunizations Immunizations are current?: Yes Immunizations: TDAP >10years/unknown - POLST Patient has POLST: No PD ED PE NORMAL - Vitals Vital signs reviewed: Yes - General General: Alert and oriented X 3, No acute distress - Abdomen Abdomen: Normal bowel sounds, Soft, Non tender - Female Female : Deferred (She will self collect swabs) - Derm Derm: No rash - Neuro Neuro: Alert and oriented X 3, Normal speech Results - Vitals Vitals: Vital Signs - 24 hr 10/15/19 16:50 Temperature 37 C Heart Rate 84 Respiratory 15 Rate Blood Pressure 123/68 O2 Saturation 99 Oxygen O2 Source Room air - Labs Labs: Microbiology 10/15/19 17:10 Wet Prep - Final Genital - Vaginal PD MEDICAL DECISION MAKING - ED course ED course: 33-year-old presents with vaginal discharge, found to have trichomoniasis which is treated with 2 g of Flagyl orally. She is also given at her request treatment for gonorrhea and chlamydia pending the test results. At her request I did call [facility] where her sexual partner is now and left a message with the half-way nurse regarding the need for partner treatment and testing. Departure - Departure Disposition: 01 Home, Self Care Clinical Impression: Trichomoniasis Condition: Good Record reviewed to determine appropriate education?: Yes Instructions: ED Vaginitis Trichomonas Comments: Recommend contacting your sex partner and letting him or her know that you have trichomoniasis and he or she should be treated as well. He should have follow- up testing with your physician to make sure that the treatment is complete in 2 weeks. We will call if other STD tests are positive but you have been fully treated for gonorrhea and chlamydia as well.
[2019-10-15] MEDS ORDERED: metroNIDAZOLE 250 MG TABLET PO STA (17:26)
[2019-10-15 18:58] LABS: CANDIDA GROUP DNA NEGATIVE (NEGATIVE); CANDIDA KRUSEI DNA NEGATIVE (NEGATIVE); TRICHOMONAS VAGINALIS DNA POSITIVE (NEGATIVE)
[2019-10-15 21:00] LABS: TRICHOMONAS VAGINALIS DNA POSITIVE (NEGATIVE)
== END 2019-10-15 17:34 | disposition home or self-care (01) ==
LOC: ED 16:43
DX: A59.01 Trichomonal vulvovaginitis (principal); F17.200 Nicotine dependence, unspecified, uncomplicated
CPT/HCPCS: 87210; 87481; 87491; 87591; 87661; 87801; 99283; A9270